=== PATIENT | male | born 1975 | race Caucasian/White ===

== ENCOUNTER 2017-09-08 17:43 | Inpatient (IN) | payer SELFPAY ==
[~2017-09-08] VITALS: Ht 200.7 cm; Wt 227.2 kg
[~2017-09-08 17:43] MED LIST: ALBU6.7H IH; FURO-68 PO; FURO-69 PO; METO25TA4 PO
--- NOTE | 2017-09-08 17:48 | ED.ADGEN ---
Past History Past Medical History: CHF, Constipation, COPD, High Cholesterol, Hypertension, Other Past Surgical History: Cholecystectomy Smoking: Greater than 1 pack/day Alcohol Use: Rarely Drug Use: None Adult General Chief Complaint Chief Complaint " .. I ve been having chest pain all day.. it is between my shoulder blades in back.. short of breath... " HPI HPI Patient is a 42 year old male who presents with above hx and complaints chest orourke and shortness of breath. Pain is rated at 6-7/10. Constant. Non- radiating. Non- compliant with Lasix and other meds. Still smokes. Hx. of clotting disorder with mother. Pt. denies trauma. Non-productive sputum with cough. Cough does seem to increase the pain. Pt. denies travel or ill contacts. Review of Systems Review of Systems Constitutional: Denies fever or chills [] Eyes: Denies change in visual acuity, redness, or eye pain [] HENT: Denies nasal congestion or sore throat [] Respiratory: complaints of shortness of breath [] Cardiovascular: No additional information not addressed in HPI [] GI: Denies abdominal pain, nausea, vomiting, bloody stools or diarrhea [] : Denies dysuria or hematuria [] Musculoskeletal: Denies back pain or joint pain [] Integument: Denies rash or skin lesions [] Neurologic: Denies headache, focal weakness or sensory changes [] Endocrine: Denies polyuria or polydipsia [] All other systems were reviewed and found to be within normal limits, except as documented in this note. Family History Family History Non-contributory Current Medications Current Medications Current Medications Medications (Trade) Dose Ordered Sig/Calixto Start Time Stop Time Status Last Admin Dose Admin Albuterol/ Ipratropium (Duoneb) 3 ml RTQID 09/08/17 21:00 09/08/17 21:33 3 ML Aspirin (Children'S Aspirin) 324 mg 1X ONCE 09/08/17 18:30 09/08/17 18:31 DC 09/08/17 18:42 324 MG Azithromycin (Zithromax) 500 mg QHS 09/08/17 21:00 09/08/17 21:34 500 MG Enoxaparin Sodium (Lovenox 100mg Syringe) 100 mg 1X ONCE 09/08/17 18:30 4/21/18 18:31 DC 09/08/17 18:30 100 MG Enoxaparin Sodium (Lovenox 150mg Syringe) 130 mg 1X ONCE 09/08/17 20:00 09/08/17 20:01 DC 09/08/17 19:46 130 MG Lactated Ringer's 1,000 ml @ 100 mls/hr Q10H 09/08/17 18:30 09/09/17 04:29 09/08/17 18:30 100 MLS/HR Morphine Sulfate (Morphine 2mg Syringe) 2 mg 1X ONCE 09/08/17 18:30 09/08/17 18:31 Cancel Morphine Sulfate (Morphine 4mg Syringe) 4 mg QIDPRN PRN 09/08/17 20:15 09/08/17 21:33 4 MG Nicotine (Nicoderm Cq 21mg) 1 patch 1X ONCE 09/08/17 21:00 09/08/17 21:01 DC 09/08/17 20:50 1 PATCH Nitroglycerin (Nitro-Bid Oint) 1 inch TID 09/08/17 21:00 Ondansetron HCl (Zofran) 4 mg PRN Q4HRS PRN 09/08/17 20:15 09/09/17 20:14 See Nursing for home meds Allergies Allergies Allergies Coded Allergies Type Severity Reaction Last Updated Verified Penicillins Allergy Intermediate 09/08/13 Yes Physical Exam Physical Exam Constitutional: Moderately acute distress, non-toxic appearance. [] HENT: Normocephalic, atraumatic, bilateral external ears normal, oropharynx moist, no oral exudates, nose normal. [] Eyes: PERRLA, EOMI, conjunctiva normal, no discharge. [] Neck: Normal range of motion, no tenderness, supple, no stridor. [] Cardiovascular:Heart rate regular rhythm, no murmur []PMI to lt. Lungs & Thorax: Bilateral breath sounds equal with scattered wheezes through out on auscultation [] Abdomen: Bowel sounds normal, soft, no tenderness, no masses, no pulsatile masses. [Obese. Skin: Warm, dry, no erythema, no rash. Veinous stasis lower legs. Back: No tenderness, no CVA tenderness. [] Extremities: No tenderness, no cyanosis, no clubbing, ROM intact, 2 + ankle edema. [] Veinous stasis. Neurologic: Alert and oriented X 3, normal motor function, normal sensory function, no focal deficits noted. [] Psychologic: Affect anxious. judgement normal, mood normal. [] Current Patient Data Vital Signs Vital Signs Date Time Temp Pulse Resp B/P (MAP) Pulse Ox O2 Delivery O2 Flow Rate FiO2 09/08/17 21:51 79 22 117/84 (95) 94 Nasal Cannula 2.0 09/08/17 17:45 98.0 Lab Results Laboratory Tests Test 09/08/17 00:02 09/08/17 17:55 09/08/17 18:42 Troponin I Quantitative 0.017 ng/mL (0-0.055) 0.019 ng/mL (0-0.055) White Blood Count 9.4 x10^3/uL (4.0-11.0) Red Blood Count 5.54 x10^6/uL (4.30-5.70) Hemoglobin 16.6 g/dL (13.0-17.5) Hematocrit 48.1 % (39.0-53.0) Mean Corpuscular Volume 87 fL (79-100) Mean Corpuscular Hemoglobin 30 pg (25-35) Mean Corpuscular Hemoglobin Concent 35 g/dL (31-37) Red Cell Distribution Width 14.4 % (11.5-14.5) Platelet Count 248 x10^3/uL (140-400) Neutrophils (%) (Auto) 65 % (31-73) Lymphocytes (%) (Auto) 24 % (24-48) Monocytes (%) (Auto) 9 % (0-9) Eosinophils (%) (Auto) 2 % (0-3) Basophils (%) (Auto) 1 % (0-3) Neutrophils # (Auto) 6.1 x10^3uL (1.8-7.7) Lymphocytes # (Auto) 2.2 x10^3/uL (1.0-4.8) Monocytes # (Auto) 0.8 x10^3/uL (0.0-1.1) Eosinophils # (Auto) 0.2 x10^3/uL (0.0-0.7) Basophils # (Auto) 0.0 x10^3/uL (0.0-0.2) Prothrombin Time 10.1 SEC (9.4-11.4) Prothrombin Time INR 1.0 (0.9-1.1) PTT 31 SEC (23-33) D-Dimer (Yaritza) 0.43 mg/L (0.00-0.50) Sodium Level 141 mmol/L (136-145) Potassium Level 3.9 mmol/L (3.5-5.1) Chloride Level 102 mmol/L (98-107) Carbon Dioxide Level 31 mmol/L (21-32) Anion Gap 8 (6-14) Blood Urea Nitrogen 14 mg/dL (8-26) Creatinine 1.0 mg/dL (0.7-1.3) Estimated GFR (Cockcroft-Gault) 81.6 Glucose Level 139 mg/dL (70-99) H Calcium Level 9.3 mg/dL (8.5-10.1) Magnesium Level 2.1 mg/dL (1.8-2.4) Total Bilirubin 0.3 mg/dL (0.2-1.0) Direct Bilirubin 0.1 mg/dL (0.0-0.2) Aspartate Amino Transferase (AST) 16 U/L (15-37) Alanine Aminotransferase (ALT) 30 U/L (16-63) Alkaline Phosphatase 68 U/L (46-116) Creatine Kinase 93 U/L (39-308) Creatine Kinase MB (Mass) 1.6 ng/mL (0.0-3.6) Creatine Kinase MB Relative Index 1.7 % (0-4) HO-Sxt-Z-Type Natriuretic Peptide 40 pg/mL (0-124) Total Protein 7.4 g/dL (6.4-8.2) Albumin 3.9 g/dL (3.4-5.0) Lipase 92 U/L (73-393) Blood pH 7.45 (7.35-7.46) Blood Gas PCO2 42 mmHg (35-46) Blood Gas PO2 57 mmHg (80-100) L Blood Gas HCO3 29 mmol/L (21-28) H Arterial Bld O2 Saturation (Calc) 90 % (92-99) L FiO2 21 % EKG EKG My interpretation of EKG shows as Sinus rate at 82, Lt. axis deviation, nonspecific fascicular block and Rt. bundle block.[] Radiology/Procedures Radiology/Procedures My interpretation of CXR shows[borderline cardiomegaly. Some cephalization, COPD pattern. Course & Med Decision Making Course & Med Decision Making Pertinent Labs and Imaging studies reviewed. (See chart for details). Discussed presentation,,testing and tx. plan with Dr. Vogel will admit for further eval. and cardiology consult. [] Final Impression Final Impression 1. Chest Pain 2. HTN- Accelerated 3. Hypoxia[] 4. COPD exacerbation/Bronchitis 5. Tobacco Abuse 6. DM 7. Morbid obesity Problems: Dragon Disclaimer Dragon Disclaimer This electronic medical record was generated, in whole or in part, using a voice recognition dictation system. ANT CURRY MD Sep 08, 2017 17:48
--- NOTE | 2017-09-08 17:56 | EKG ---
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
[2017-09-08] MEDS ORDERED: ENOXAPARIN ** NOTE DOSE ** SYRINGE SQ ONE ×3 (18:13→20:00)
[2017-09-08] MEDS ORDERED: MORPHINE SULFATE 4 MG/ML DISP.SYRIN. ONE (18:14)
[2017-09-08 18:20] LABS: BASO % 1 % (0-3); EOS # 0.2 x10^3/uL (0.0-0.7); EOS % 2 % (0-3); HEMATOCRIT 48.1 % (39.0-53.0); HEMOGLOBIN 16.6 g/dL (13.0-17.5); LYMPH # 2.2 x10^3/uL (1.0-4.8); LYMPH % 24 % (24-48); MEAN CORPUSCULAR HEMOGLOBIN 30 pg (25-35); MEAN CORPUSCULAR HGB CONC 35 g/dL (31-37); MEAN CORPUSCULAR VOLUME 87 fL (79-100); MONO # 0.8 x10^3/uL (0.0-1.1); MONO % 9 % (0-9); NEUT # 6.1 x10^3uL (1.8-7.7); NEUT % 65 % (31-73); PLATELET COUNT 248 x10^3/uL (140-400); RED BLOOD COUNT 5.54 x10^6/uL (4.30-5.70); RED CELL DISTRIBUTION WIDTH 14.4 % (11.5-14.5); WHITE BLOOD COUNT 9.4 x10^3/uL (4.0-11.0)
[2017-09-08] MEDS ORDERED: MORPHINE SULFATE 2 MG/ML DISP.SYRIN. IV ONE (18:30)
[2017-09-08] MEDS ORDERED: NITROGLYCERIN OINT 1 GM PACKET. TP ONE (18:30)
[2017-09-08] MEDS ORDERED: MORPHINE SULFATE 4 MG/ML DISP.SYRIN. IV ONE ×3 (18:30→19:45)
[2017-09-08] MEDS ORDERED: ASPIRIN 81 MG TAB.CHEW PO ONE (18:30)
[2017-09-08] MEDS ORDERED: IV RINGERS SOLUTION,LACTATED 1,000 ML IV SCH (18:30)
[2017-09-08 18:54] LABS: ALBUMIN 3.9 g/dL (3.4-5.0); CALCIUM 9.3 mg/dL (8.5-10.1); DIRECT BILIRUBIN 0.1 mg/dL (0.0-0.2); GFR 81.6; MAGNESIUM 2.1 mg/dL (1.8-2.4); POTASSIUM 3.9 mmol/L (3.5-5.1); TOTAL BILIRUBIN 0.3 mg/dL (0.2-1.0); TOTAL PROTEIN 7.4 g/dL (6.4-8.2)
[2017-09-08 19:15] LABS: BGAS PH 7.45 (7.35-7.46)
[2017-09-08] MEDS ORDERED: ONDANSETRON PF 4 MG/2 ML VIAL. IV PRN (20:15)
[2017-09-08] MEDS ORDERED: AZITHROMYCIN 250 MG TABLET. PO SCH (21:00)
[2017-09-08] MEDS ORDERED: NICOTINE 21MG PATCH. TD ONE (21:00)
[2017-09-08] MEDS: NITROGLYCERIN OINT 1 GM PACKET. TP SCH (21:00)
[2017-09-08] MEDS: MORPHINE SULFATE 4 MG/ML DISP.SYRIN. IV PRN (21:33)
[2017-09-08] MEDS: IPRATRPIUM/ALBUTEROL 0.5/2.5MG 3 ML NEBU. NEB SCH (21:33)
[2017-09-08 22:31] VITALS: BP 129/63
[2017-09-08 23:19] VITALS: BP 134/67
[2017-09-09] MEDS ORDERED: METO-239 PO (00:59)
[2017-09-09] MEDS ORDERED: ASPI-630 PO (00:59)
[2017-09-09] MEDS ORDERED: FURO80TA72 PO (00:59)
[2017-09-09] MEDS ORDERED: PNEUMOCOCCAL VAX SCREEN. MC ONE (01:00)
[2017-09-09 03:32] LABS: BILIRUBIN,URINE NEG (NEG); CLARITY,URINE CLEAR; COLOR,URINE AMBER; GLUCOSE,URINE NEG (NEG)
[2017-09-09 03:33] LABS: BACTERIA,URINE 0 /HPF (0-FEW); HYALINE CASTS, URINE OCC /HPF; NITRITE,URINE NEG (NEG); RBC,URINE RARE /HPF (0-2); SQUAMOUS EPITHELIAL CELL,UR OCC /LPF; UROBILINOGEN,URINE 0.2 mg/dL (0.2 mg/dL); WBC,URINE OCC /HPF (0-4)
[2017-09-09 03:37] LABS: AMPHETAMINE/METHAMPHETAMINE NEG (NEG); BARBITURATES NEG (NEG); BENZODIAZEPINES NEG (NEG); CANNABINOIDS NEG (NEG); COCAINE NEG (NEG); METHADONE NEG (NEG); OPIATES POS (NEG); PHENCYCLIDINE NEG (NEG)
[2017-09-09] MEDS: MORPHINE SULFATE 4 MG/ML DISP.SYRIN. IV PRN ×2 (04:45→09:57)
[2017-09-09 05:00] VITALS: BP 135/70
[2017-09-09] MEDS: IPRATRPIUM/ALBUTEROL 0.5/2.5MG 3 ML NEBU. NEB SCH ×2 (05:15→11:01)
[2017-09-09 07:17] LABS: BASO % 1 % (0-3); EOS # 0.2 x10^3/uL (0.0-0.7); EOS % 2 % (0-3); HEMATOCRIT 44.4 % (39.0-53.0); LYMPH # 1.9 x10^3/uL (1.0-4.8); LYMPH % 22 % (24-48); MEAN CORPUSCULAR HEMOGLOBIN 30 pg (25-35); MEAN CORPUSCULAR HGB CONC 34 g/dL (31-37); MEAN CORPUSCULAR VOLUME 88 fL (79-100); MONO # 0.7 x10^3/uL (0.0-1.1); MONO % 9 % (0-9); NEUT # 5.6 x10^3uL (1.8-7.7); NEUT % 67 % (31-73); PLATELET COUNT 225 x10^3/uL (140-400); RED BLOOD COUNT 5.07 x10^6/uL (4.30-5.70); RED CELL DISTRIBUTION WIDTH 14.9 % (11.5-14.5); WHITE BLOOD COUNT 8.5 x10^3/uL (4.0-11.0)
[2017-09-09 07:31] LABS: CALCIUM 8.8 mg/dL (8.5-10.1); CREATININE 1.2 mg/dL (0.7-1.3); GFR 66.1; POTASSIUM 3.9 mmol/L (3.5-5.1)
[2017-09-09] MEDS ORDERED: ASPIRIN 81 MG TAB.CHEW PO SCH (09:00)
[2017-09-09] MEDS ORDERED: ENOXAPARIN ** NOTE DOSE ** SYRINGE SQ SCH (09:00)
[2017-09-09] MEDS ORDERED: PNEUMOC CONJ VACC 23-VALENT 0.5 ML VIAL. VAX IM ONE (09:00)
[2017-09-09] MEDS ORDERED: LACTOBACILLUS RHAMNOSUS GG 1 CAPSULE. PO SCH (09:00)
[2017-09-09] MEDS: NITROGLYCERIN OINT 1 GM PACKET. TP SCH (09:18)
--- NOTE | 2017-09-09 09:45 | RAD ---
PA and lateral chest x-ray History: Chest pain shortness of breath. History of congestive heart failure. Comparison: Chest x-ray April 30, 2016. Findings: Heart size upper limits of normal. Mediastinum is unremarkable. Mild prominence of the pulmonary vasculature although this is somewhat similar to the prior study. No pneumothorax, pulmonary opacities or pleural effusions. Bones are unremarkable. Impression: No acute process evident. See discussion above.
--- NOTE | 2017-09-09 09:52 | PDOC2 ---
CONSULT Date of Admission DATE: 09/09/17 TIME: 09:51 Reason for Consult: Chest pain Referring Physician: Dr. Vogel Chief Complaint Chest pain Source: Chart review, Patient Problem List Problems Medical Problems: (1) Chest pain Status: Acute History of Present Illness 42-year-old male presented with three-day history of retrosternal chest pain associated with interscapular back pain and mild shortness of breath worse with exertion. He denied any orthopnea/PND, palpitations or syncope. Past Medical History Chronic diastolic heart failure COPD Hypertension Hyperlipidemia Morbid obesity Past Surgical History Cholecystectomy Family History Negative for premature coronary artery disease Social History Patient smokes greater than one pack of cigarettes daily and admitted to social intake of alcohol but denied any drug abuse. Current Medications Current Medications Aspirin (Children'S Aspirin) 324 mg 1X ONCE PO Last administered on 09/08/17at 18:42; Start 09/08/17 at 18:30; Stop 09/08/17 at 18:31; Status DC Morphine Sulfate (Morphine 2mg Syringe) 2 mg 1X ONCE IV ; Start 09/08/17 at 18: 30; Stop 09/08/17 at 18:31; Status Cancel Enoxaparin Sodium (Lovenox 100mg Syringe) 100 mg 1X ONCE SQ Last administered on 09/08/17at 18:30; Start 09/08/17 at 18:30; Stop 09/08/17 at 18:31; Status DC Lactated Ringer's 1,000 ml @ 100 mls/hr Q10H IV Last administered on at 18:30; Start 09/08/17 at 18:30; Stop 09/09/17 at 04:29; Status DC Nitroglycerin (Nitro-Bid Oint) 1 inch 1X ONCE TP Last administered on at 18:41; Start 09/08/17 at 18:30; Stop 09/08/17 at 18:31; Status DC Enoxaparin Sodium (Lovenox 150mg Syringe) 150 mg STK-MED ONCE SQ ; Start at 18:13; Stop 09/08/17 at 18:14; Status DC Morphine Sulfate (Morphine 4mg Syringe) 4 mg STK-MED ONCE .ROUTE ; Start at 18:14; Stop 09/08/17 at 18:15; Status DC Morphine Sulfate (Morphine 4mg Syringe) 2 mg 1X ONCE IV Last administered on at 18:41; Start 09/08/17 at 18:30; Stop 09/08/17 at 18:31; Status DC Enoxaparin Sodium (Lovenox 150mg Syringe) 130 mg 1X ONCE SQ Last administered on 09/08/17 19:46; Start 09/08/17 at 20:00; Stop 09/08/17 at 20:01; Status DC Morphine Sulfate (Morphine 4mg Syringe) 2 mg 1X ONCE IV Last administered on at 18:42; Start 09/08/17 at 19:45; Stop 09/08/17 at 19:46; Status DC Morphine Sulfate (Morphine 4mg Syringe) 4 mg 1X ONCE IV Last administered on at 19:45; Start 09/08/17 at 19:45; Stop 09/08/17 at 19:46; Status DC Ondansetron HCl (Zofran) 4 mg PRN Q4HRS PRN IV NAUSEA/VOMITING; Start 09/08/17 at 20:15; Stop 09/09/17 at 20:14 Albuterol/ Ipratropium (Duoneb) 3 ml RTQID NEB Last administered on 09/09/17 05:15; Start 09/08/17 at 21:00 Enoxaparin Sodium (Lovenox 100mg Syringe) 200 mg BID SQ Last administered on 09:08; Start 09/09/17 at 09:00 Aspirin (Children'S Aspirin) 81 mg DAILY PO Last administered on 09/09/17 09: 08; Start 09/09/17 at 09:00 Nitroglycerin (Nitro-Bid Oint) 1 inch TID TP Last administered on 09/09/17 09: 18; Start 09/08/17 at 21:00 Azithromycin (Zithromax) 500 mg QHS PO Last administered on 09/08/17 21:34; Start 09/08/17 at 21:00 Morphine Sulfate (Morphine 4mg Syringe) 4 mg QIDPRN PRN IV pain Last administered on 09/09/17 04:45; Start 09/08/17 at 20:15 Nicotine (Nicoderm Cq 21mg) 1 patch 1X ONCE TD Last administered on 4/21/18at 20:50; Start 09/08/17 at 21:00; Stop 09/08/17 at 21:01; Status DC Pneumococcal Polyvalent Vaccine (Do NOT chart on this entry -- for MONITORING) 1 each 1X ONCE MC ; Start 09/09/17 at 01:00; Stop 09/09/17 at 01:01; Status UNV Pneumococcal Polyvalent Vaccine (Pneumovax 23) 0.5 ml ONCE ONCE VAX IM Last administered on 09/09/17at 09:10; Start 09/09/17 at 09:00; Stop 09/09/17 at 09:01 ; Status DC Lactobacillus Rhamnosus (Culturelle) 1 cap BID PO Last administered on at 09:08; Start 09/09/17 at 09:00 Active Scripts Active Reported Aspirin 81 Mg Tab.chew 81 Mg PO DAILY Lasix (Furosemide) 80 Mg Tablet 80 Mg PO DAILY Metoprolol Succinate ( Xl ) (Metoprolol Succinate) 25 Mg Tab.er.24h 25 Mg PO DAILY Allergies: Coded Allergies: Penicillins (Verified Allergy, Intermediate, 09/08/13) PSYCHOLOGICAL ROS: No: Hallucinations Eyes: No: Loss of vision HEENT: No: Epistaxis Respiratory: YES: Shortness of breath, No: Hemoptysis Cardiovascular: yes: Chest Pain Gastrointestinal: No: Vomiting, Diarrhea Genitourinary: No: [place] Neurological: No: Seizures Skin: No: Rash General: Alert, No acute distress HEENT: Atraumatic, PERRLA Lungs: Other (scattered crepts bilaterally) Heart: Regular rate Abdomen: Soft, No tenderness Extremities: Other (edema with chronic changes) Psych/Mental Status: Mood NL VITALS Vital Signs Date Time Temp Pulse Resp B/P (MAP) Pulse Ox O2 Delivery O2 Flow Rate FiO2 09/09/17 09:18 70 135/70 09/09/17 05:15 20 Nasal Cannula 3.0 09/09/17 05:03 92 09/09/17 05:00 97.7 Labs Laboratory Tests Test 09/08/17 00:02 09/08/17 17:55 09/08/17 18:42 09/09/17 01:03 Troponin I Quantitative 0.017 ng/mL (0-0.055) 0.019 ng/mL (0-0.055) White Blood Count 9.4 x10^3/uL (4.0-11.0) Red Blood Count 5.54 x10^6/uL (4.30-5.70) Hemoglobin 16.6 g/dL (13.0-17.5) Hematocrit 48.1 % (39.0-53.0) Mean Corpuscular Volume 87 fL (79-100) Mean Corpuscular Hemoglobin 30 pg (25-35) Mean Corpuscular Hemoglobin Concent 35 g/dL (31-37) Red Cell Distribution Width 14.4 % (11.5-14.5) Platelet Count 248 x10^3/uL (140-400) Neutrophils (%) (Auto) 65 % (31-73) Lymphocytes (%) (Auto) 24 % (24-48) Monocytes (%) (Auto) 9 % (0-9) Eosinophils (%) (Auto) 2 % (0-3) Basophils (%) (Auto) 1 % (0-3) Neutrophils # (Auto) 6.1 x10^3uL (1.8-7.7) Lymphocytes # (Auto) 2.2 x10^3/uL (1.0-4.8) Monocytes # (Auto) 0.8 x10^3/uL (0.0-1.1) Eosinophils # (Auto) 0.2 x10^3/uL (0.0-0.7) Basophils # (Auto) 0.0 x10^3/uL (0.0-0.2) Prothrombin Time 10.1 SEC (9.4-11.4) Prothromb Time International Ratio 1.0 (0.9-1.1) Activated Partial Thromboplast Time 31 SEC (23-33) D-Dimer (Yaritza) 0.43 mg/L (0.00-0.50) Sodium Level 141 mmol/L (136-145) Potassium Level 3.9 mmol/L (3.5-5.1) Chloride Level 102 mmol/L (98-107) Carbon Dioxide Level 31 mmol/L (21-32) Anion Gap 8 (6-14) Blood Urea Nitrogen 14 mg/dL (8-26) Creatinine 1.0 mg/dL (0.7-1.3) Estimated GFR (Cockcroft-Gault) 81.6 Glucose Level 139 mg/dL (70-99) Calcium Level 9.3 mg/dL (8.5-10.1) Magnesium Level 2.1 mg/dL (1.8-2.4) Total Bilirubin 0.3 mg/dL (0.2-1.0) Direct Bilirubin 0.1 mg/dL (0.0-0.2) Aspartate Amino Transf (AST/SGOT) 16 U/L (15-37) Alanine Aminotransferase (ALT/SGPT) 30 U/L (16-63) Alkaline Phosphatase 68 U/L (46-116) Creatine Kinase 93 U/L (39-308) Creatine Kinase MB (Mass) 1.6 ng/mL (0.0-3.6) Creatine Kinase MB Relative Index 1.7 % (0-4) QP-Ghj-[id number]-Type Natriuretic Peptide 40 pg/mL (0-124) Total Protein 7.4 g/dL (6.4-8.2) Albumin 3.9 g/dL (3.4-5.0) Lipase 92 U/L (73-393) Blood Gas pH 7.45 (7.35-7.46) Blood Gas PCO2 42 mmHg (35-46) Blood Gas PO2 57 mmHg (80-100) Blood Gas HCO3 29 mmol/L (21-28) Arterial Bld O2 Saturation (Calc) 90 % (92-99) FiO2 21 % Urine Collection Type Unknown Urine Color [place] Urine Clarity Clear Urine pH 5.5 Urine Specific [place] 1.025 Urine Protein Neg (NEG-TRACE) Urine Glucose (UA) Neg mg/dL (NEG) Urine Ketones (Stick) Neg mg/dL (NEG) Urine Blood Neg (NEG) Urine Nitrite Neg (NEG) Urine Bilirubin Neg (NEG) Urine Urobilinogen Dipstick 0.2 mg/dL (0.2 mg/dL) Urine Leukocyte Esterase Neg (NEG) Urine RBC Rare /HPF (0-2) Urine WBC Occ /HPF (0-4) Urine Squamous Epithelial Cells Occ /LPF Urine Bacteria 0 /HPF (0-FEW) Urine Hyaline Casts Occ /HPF Urine Mucus Slight /LPF Urine Opiates Screen Pos (NEG) Urine Methadone Screen Neg (NEG) Urine Barbiturates Neg (NEG) Urine Phencyclidine Screen Neg (NEG) Urine Amphetamine/Methamphetamine Neg (NEG) Urine Benzodiazepines Screen Neg (NEG) Urine Cocaine Screen Neg (NEG) Urine Cannabinoids Screen Neg (NEG) Urine Ethyl Alcohol Neg (NEG) Test 09/09/17 06:42 White Blood Count 8.5 x10^3/uL (4.0-11.0) Red Blood Count 5.07 x10^6/uL (4.30-5.70) Hemoglobin 15.0 g/dL (13.0-17.5) Hematocrit 44.4 % (39.0-53.0) Mean Corpuscular Volume 88 fL (79-100) Mean Corpuscular Hemoglobin 30 pg (25-35) Mean Corpuscular Hemoglobin Concent 34 g/dL (31-37) Red Cell Distribution Width 14.9 % (11.5-14.5) Platelet Count 225 x10^3/uL (140-400) Neutrophils (%) (Auto) 67 % (31-73) Lymphocytes (%) (Auto) 22 % (24-48) Monocytes (%) (Auto) 9 % (0-9) Eosinophils (%) (Auto) 2 % (0-3) Basophils (%) (Auto) 1 % (0-3) Neutrophils # (Auto) 5.6 x10^3uL (1.8-7.7) Lymphocytes # (Auto) 1.9 x10^3/uL (1.0-4.8) Monocytes # (Auto) 0.7 x10^3/uL (0.0-1.1) Eosinophils # (Auto) 0.2 x10^3/uL (0.0-0.7) Basophils # (Auto) 0.0 x10^3/uL (0.0-0.2) Sodium Level 141 mmol/L (136-145) Potassium Level 3.9 mmol/L (3.5-5.1) Chloride Level 103 mmol/L (98-107) Carbon Dioxide Level 34 mmol/L (21-32) Anion Gap 4 (6-14) Blood Urea Nitrogen 19 mg/dL (8-26) Creatinine 1.2 mg/dL (0.7-1.3) Estimated GFR (Cockcroft-Gault) 66.1 Glucose Level 144 mg/dL (70-99) Calcium Level 8.8 mg/dL (8.5-10.1) Troponin I Quantitative < 0.017 ng/mL (0-0.055) Assessment/Plan 1. Chest pain with atypical features: Myocardial infarction has been ruled out. Plan for Lexiscan nuclear stress test as an outpatient. 2. Shortness of breath most probably acute COPD exacerbation. Chest x-ray did not show any congestive heart failure. Symptoms improved after breathing treatments. 2-D echo in 2015 showed normal LV systolic function. The importance of smoking cessation was emphasized. 3. Accelerated hypertension: Better controlled since admission 4. Chronic diastolic heart failure: Clinically well compensated. Continue Lasix orally. Thank you for your consultation Problems: JAIRO LEE MD Sep 09, 2017 09:52
[2017-09-09 10:41] VITALS: BP 106/67
--- NOTE | 2017-09-09 10:59 | RAD ---
Bilateral lower extremity venous duplex Doppler ultrasound History: Bilateral leg pain and edema and swelling. Technique: Grayscale and duplex upper sonography were utilized. Findings: No deep venous thrombosis by cuellar scale imaging with compressibility, and color Doppler blood flow and augmentation of blood flow of the common femoral veins, profunda femoral veins, superficial femoral veins and popliteal veins. Patent color Doppler blood flow without gross evidence of thrombosis of the posterior tibial veins in the calves. Patient body habitus limits visualization of segments of deep calf veins and of the distal femoral veins by cuellar scale imaging. Impression: Negative legs for deep venous thrombosis.
[2017-09-09 15:23] VITALS: BP 106/67
[2017-09-09] MEDS ORDERED: METOPROLOL SUCC 24HR ER 25 MG TAB.ER.24H. PO ONE (15:30)
[2017-09-09] MEDS ORDERED: FUROSEMIDE 80 MG TABLET PO ONE (15:30)
--- NOTE | 2017-09-09 17:19 | SSS ---
ADMIT DATE: HISTORY OF PRESENT ILLNESS: The patient is a 42-year-old male patient who came to the Emergency Room with a complaint of chest pain between his shoulder blades and the back. He has also shortness of breath. Denied any nausea or vomiting. Denied any diaphoresis. Did complain of numbness in his left hand. He rated his pain about 6-7/10, constant, nonradiating. Apparently, the patient was supposed to be on Lasix, but he is noncompliant with his medication and he stated that he has history of clotting in his family; however, denied any short cough, phlegm or hemoptysis. He was extensively investigated, and his D-dimer was only 0.43. He has no leukocytosis and he has 3 sets of cardiac enzymes, were negative. His thyroid function is normal and has had his fasting lipid profile, which showed his total cholesterol was 202 and LDL cholesterol was 133. He was seen by the pharmacy tech who recommended that the patient can be safely discharged to be followed as an outpatient for stress test. He apparently had a stress test done about 6 years ago and was negative. PAST MEDICAL HISTORY: Significant for hypertension, chronic obstructive pulmonary disease, congestive heart failure, chronic constipation, and hyperlipidemia. PAST SURGICAL HISTORY: Significant for cholecystectomy and ganglion cyst removal from the medial aspect of the right ankle joint. ALLERGIES: He has no known drug allergies. MEDICATIONS: He is on metoprolol 25 mg extended release once a day, furosemide 80 mg once a day, and aspirin 81 mg once a day. FAMILY HISTORY: He has 1 brother and 3 sisters, one of his sisters has pulmonary embolism. Mother at the age of 70 because of lymphoma and has had a history of pulmonary embolism. Father is still alive in his 60s and has hypertension and hyperlipidemia. SOCIAL HISTORY: , has 1 son and 2 daughters. He smokes about a pack a day, drinks alcohol occasionally. Does not use any drugs. 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 REVIEW OF SYSTEMS: The patient denied any blurring of vision, cataract, glaucoma or macular degeneration. Denied any earache, tinnitus or sensorineural deafness. Denied any nausea, vomiting, diarrhea or constipation. Denied any hematemesis, melena or hematochezia. Denied any dysuria, frequency or hematuria. His chest pain has largely subsided. PHYSICAL EXAMINATION: GENERAL: When I examined him, he looked well and was clearly in no apparent respiratory distress, pale, but no jaundice, cyanosis or thyromegaly. No jugular venous distention. No limb edema. VITAL SIGNS: His heart rate was 67, blood pressure was 106/67, temperature was 98, respiratory rate was 18 and oxygen saturation was 96% on room air. HEAD, EYES, EARS, NOSE AND THROAT: Showed normocephalic, atraumatic. NECK: Supple. HEART: Showed normal first and second heart sounds. No gallop, rub or murmur. CHEST: Clear to auscultation. No crepitation or rhonchi. ABDOMEN: Distended, soft, nontender. NEUROLOGIC: He is awake, alert, responding appropriately. Cranial nerves intact. EXTREMITIES: He moves extremities without difficulty. He ambulates without assistance or assistive devices. LABORATORY DATA: Showed serum sodium of 141, potassium 3.9, chloride 103, bicarbonate 34, anion gap of 4, BUN 19, creatinine 1.2, estimated GFR was 66 mL per minute, his glucose 144, calcium was 8.8, has 3 sets of cardiac enzymes that are negative. His TSH was normal at 3.325. His fasting lipid profile showed serum triglycerides 197. Total cholesterol 202, LDL was 133, VLDL was 39, HDL cholesterol was 30 and the ratio was 6. White cell count was 8500, hemoglobin 15, hematocrit 44, MCV 88 and platelet count of 225,000. ASSESSMENT AND PLAN: In summary, this is a 42-year-old male patient who came with chest pain, has 3 sets of cardiac enzymes that were negative. He was seen by the Cardiology team who recommended outpatient nuclear stress test. He has also hypertension, morbid obesity, hyperlipidemia, chronic obstructive pulmonary disease, and diastolic congestive heart failure. He is noncompliant with medication. I explained to him that most of his medication can be both from [facility] and [facility]. We will give him prescription for that and should follow with the Cardiology team as an outpatient. SHAHZAD MACEDO MD DR: KARINA/berenice JOB#: [id number] / [id number]
== END 2017-09-09 15:49 | disposition home or self-care (01) | DRG 313 ==
LOC: ER 17:43 → 1 SOUTH 22:16
PROVIDERS: ADMIT Internal Medicine; ATTEND Internal Medicine
DX: R07.89 Other chest pain (principal); I11.0 Hypertensive heart disease with heart failure; I50.32 Chronic diastolic (congestive) heart failure; E66.01 Morbid (severe) obesity due to excess calories; J44.0 Chronic obstructive pulmonary disease with (acute) lower respiratory infection; J44.1 Chronic obstructive pulmonary disease with (acute) exacerbation; Z68.43 Body mass index [BMI] 50.0-59.9, adult; E78.00 Pure hypercholesterolemia, unspecified; J20.9 Acute bronchitis, unspecified; E11.9 Type 2 diabetes mellitus without complications; R09.02 Hypoxemia; E78.5 Hyperlipidemia, unspecified; F17.210 Nicotine dependence, cigarettes, uncomplicated; Z90.49 Acquired absence of other specified parts of digestive tract; Z88.0 Allergy status to penicillin; Z80.7 Family history of other malignant neoplasms of lymphoid, hematopoietic and related tissues; Z82.49 Family history of ischemic heart disease and other diseases of the circulatory system; Z91.14 Patient's other noncompliance with medication regimen; Z84.89 Family history of other specified conditions; Z23 Encounter for immunization
CPT/HCPCS: 36415; 36600; 71046; 80048; 80061; 80076; 80307; 81001; 82553; 82803; 83036; 83690; 83735; 83880; 84443; 84484; 85025; 85379; 85610; 85730; 90732; 93005; 93970; 94640; 99406; G0238; J0456; J1650; J2270; J7120; J7620; G0479

== ENCOUNTER 2017-12-07 21:30 | Emergency (ER) | payer SELFPAY ==
[~2017-12-07] VITALS: Ht 200.7 cm; Wt 226.3 kg
[~2017-12-07 21:30] MED LIST changes: +ASPI-630 PO; +FURO80TA72 PO; +METO-239 PO
[2017-12-07 21:40] VITALS: BP 210/99
[2017-12-07] MEDS ORDERED: KETOROLAC 30 MG/ML VIAL. ONE (21:53)
[2017-12-07] MEDS ORDERED: IV NORMAL SALINE 500ML 500 ML IV ONE (22:00)
[2017-12-07] MEDS ORDERED: ONDANSETRON PF 4 MG/2 ML VIAL. IV ONE (22:00)
[2017-12-07] MEDS ORDERED: KETOROLAC 30 MG/ML VIAL. IV ONE (22:00)
--- NOTE | 2017-12-07 22:28 | PHYS DOC ---
Past History Past Medical History: CHF, Hypertension Past Surgical History: Cholecystectomy Smoking: Greater than 1 pack/day Alcohol Use: Occasionally Drug Use: None Adult General Chief Complaint Chief Complaint: NAUSEA/VOMITING/DIARRHEA HPI HPI 42-year-old male presents with right buttocks abscess. The patient states that he began to feel boil forming one week ago. 3 days ago, it began to spontaneously drain purulent fluid. The patient comes in today because he began vomiting and feeling feverish while he was at work. 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 He had an infection in the past that went septic and he had similar prodrome as today. He further admits to some mild shortness of breath. He still has 8 out of 10 pain near the abscess site. He states that the site of the wound is significantly reduced. He has not measured a fever, but has had chills. He denies chest pain, diarrhea, constipation, dysuria. Review of Systems Review of Systems Constitutional: Has had chills [] Eyes: Denies change in visual acuity, redness, or eye pain [] HENT: Denies nasal congestion or sore throat [] Respiratory: Has some shortness of breath [] Cardiovascular: No additional information not addressed in HPI [] GI: Denies abdominal pain, nausea, vomiting, bloody stools or diarrhea [] : Denies dysuria or hematuria [] Musculoskeletal: Denies back pain or joint pain [] Integument: Skin lesion of right buttocks [] Neurologic: Denies headache, focal weakness or sensory changes [] Endocrine: Denies polyuria or polydipsia [] All other systems were reviewed and found to be within normal limits, except as documented in this note. Current Medications Current Medications Current Medications Medications (Trade) Dose Ordered Sig/Calixto Start Time Stop Time Status Last Admin Dose Admin Ketorolac Tromethamine (Toradol) 30 mg STK-MED ONCE 12/07/17 21:53 12/07/17 21:54 DC Ondansetron HCl (Zofran) 4 mg 1X ONCE 12/07/17 22:00 12/07/17 22:01 DC 12/07/17 22:15 4 MG Sodium Chloride 500 ml @ 0 mls/hr 1X ONCE 12/07/17 22:00 12/07/17 22:01 DC 12/07/17 22:00 500 MLS/HR Allergies Allergies Allergies Coded Allergies Type Severity Reaction Last Updated Verified Penicillins Allergy Intermediate 09/08/13 Yes Physical Exam Physical Exam Constitutional: Well developed, morbidly obese, well nourished, no acute distress, non-toxic appearance. [] HENT: Normocephalic, atraumatic, bilateral external ears normal, oropharynx moist, no oral exudates, nose normal. [] Eyes: PERRLA, EOMI, conjunctiva normal, no discharge. [] Neck: Normal range of motion, no tenderness, supple, no stridor. [] Cardiovascular:Heart rate regular rhythm, no murmur [] Lungs & Thorax: Bilateral breath sounds clear to auscultation [] Abdomen: Bowel sounds normal, soft, no tenderness, no masses, no pulsatile masses. [] Skin: 4cm area of erythema on the right buttocks, 2mm hole in the middle with clear drainage. [] Back: No tenderness, no CVA tenderness. [] Extremities: No tenderness, no cyanosis, no clubbing, ROM intact, no edema. [] Neurologic: Alert and oriented X 3, normal motor function, normal sensory function, no focal deficits noted. [] Psychologic: Affect normal, judgement normal, mood normal. [] EKG EKG [] Radiology/Procedures Radiology/Procedures [] Impressions: My read: AP chest has no acute findings. No effusions or focal consolidations. My read: KUB shows diffuse stool throughout the colon. No air-fluid levels Course & Med Decision Making Course & Med Decision Making Pertinent Labs and Imaging studies reviewed. (See chart for details) The patient's labs are negative. His chest x-ray is unremarkable acute findings. Further discussion with the patient reveals some left upper quadrant abdominal pain. The patient also states that his bowel movements have been decreased for several days. He has had small mamadou instead of a normal bowel movement. I will order an abdominal film to evaluate for constipation. The patient's KUB does show stool throughout the colon. I do not see evidence of obstruction. Reviewed the patient 10 mg of Reglan for his continued nausea. I do not see signs of infection. I believe the patient is somewhat constipated, mildly dehydrated, and may or may not be coming down with a viral illness. I do not have indications for admission to hospital at this time. He is stable for discharge. The patient had his O2 sats drop into the 80s when he fell asleep. I have advised that he consider a sleep study for sleep apnea. He has always had high blood pressure, but I advised him that his sleep apnea could be contributing to his elevated blood pressure. [] Dragon Disclaimer Dragon Disclaimer This electronic medical record was generated, in whole or in part, using a voice recognition dictation system. Departure Departure: Referrals: PCP,NO (PCP) PITA SARAH DO Dec 07, 2017 22:28
[2017-12-07 22:32] LABS: BASO % 1 % (0-3); EOS # 0.2 x10^3/uL (0.0-0.7); EOS % 3 % (0-3); HEMATOCRIT 43.1 % (39.0-53.0); HEMOGLOBIN 14.5 g/dL (13.0-17.5); LYMPH # 2.1 x10^3/uL (1.0-4.8); LYMPH % 25 % (24-48); MEAN CORPUSCULAR HEMOGLOBIN 29 pg (25-35); MEAN CORPUSCULAR HGB CONC 34 g/dL (31-37); MEAN CORPUSCULAR VOLUME 87 fL (79-100); MONO # 0.8 x10^3/uL (0.0-1.1); MONO % 9 % (0-9); NEUT # 5.3 x10^3uL (1.8-7.7); NEUT % 63 % (31-73); PLATELET COUNT 274 x10^3/uL (140-400); RED BLOOD COUNT 4.94 x10^6/uL (4.30-5.70); RED CELL DISTRIBUTION WIDTH 13.9 % (11.5-14.5); WHITE BLOOD COUNT 8.4 x10^3/uL (4.0-11.0)
[2017-12-07 22:38] LABS: CALCIUM 9.3 mg/dL (8.5-10.1); GFR 81.6; POTASSIUM 3.6 mmol/L (3.5-5.1)
[2017-12-08] MEDS ORDERED: HYDROcodone/APAP 5/325MG 1 TAB TABLET PO ONE (00:30)
[2017-12-08] MEDS ORDERED: METOCLOPRAMIDE HCL 10 MG/2 ML VIAL. IV ONE (00:30)
--- NOTE | 2017-12-08 08:01 | RAD ---
Examination: Frontal view of the abdomen HISTORY: History of abdominal pain, constipation COMPARISON: None available FINDINGS: Cholecystectomy clips identified. The bowel gas pattern appears unremarkable. Feces and gas noted in the colon. IMPRESSION: 1. Unremarkable bowel gas pattern. Feces and gas noted in the colon. Correlate for constipation. Electronically signed by: Xiang Gerard MD (12/08/2017 7:57 AM) [facility]
--- NOTE | 2017-12-08 08:05 | RAD ---
Examination: Single frontal view of the chest HISTORY: History of shortness of breath COMPARISON: 09/08/2017. FINDINGS: The cardiomediastinal silhouette grossly appears unremarkable. There is mild prominent appearing bilateral interstitial lung markings. IMPRESSION: Mild prominent appearing bilateral interstitial lung markings likely mild congestive changes. Electronically signed by: Xiang Gerard MD (12/08/2017 8:02 AM) [facility]
== END 2017-12-08 01:28 | disposition home or self-care (01) ==
LOC: ER 21:30
DX: L02.31 Cutaneous abscess of buttock (principal); R10.12 Left upper quadrant pain; K59.00 Constipation, unspecified; R11.10 Vomiting, unspecified
CPT/HCPCS: 36415; 71045; 74018; 80048; 85025; 87070; 96361; 96374; 96375; 99285; J1885; J2405; J2765; J7040

== ENCOUNTER 2018-01-02 10:21 | Emergency (ER) | payer SELFPAY ==
[~2018-01-02] VITALS: Ht 200.7 cm; Wt 226.3 kg
[2018-01-02 11:10] LABS: BASO # 0.1 x10^3/uL (0.0-0.2); BASO % 1 % (0-3); EOS # 0.2 x10^3/uL (0.0-0.7); EOS % 3 % (0-3); HEMOGLOBIN 15.3 g/dL (13.0-17.5); LYMPH # 1.7 x10^3/uL (1.0-4.8); LYMPH % 23 % (24-48); MEAN CORPUSCULAR HEMOGLOBIN 30 pg (25-35); MEAN CORPUSCULAR HGB CONC 34 g/dL (31-37); MEAN CORPUSCULAR VOLUME 86 fL (79-100); MONO # 0.5 x10^3/uL (0.0-1.1); MONO % 7 % (0-9); NEUT # 4.9 x10^3uL (1.8-7.7); NEUT % 66 % (31-73); PLATELET COUNT 225 x10^3/uL (140-400); RED CELL DISTRIBUTION WIDTH 14.2 % (11.5-14.5); WHITE BLOOD COUNT 7.4 x10^3/uL (4.0-11.0)
--- NOTE | 2018-01-02 11:10 | ED.ADGEN ---
Past History Past Medical History: CHF, Hypertension, Other Past Surgical History: Cholecystectomy, Other Smoking: Greater than 1 pack/day Alcohol Use: Occasionally Drug Use: None Adult General Chief Complaint Chief Complaint Shortness of breath HPI HPI Patient is a 39-year-old male with history of hypertension and congestive heart failure presents with elevated blood pressure. Then 200/100, and shortness of breath which is been progressive since this morning. Patient also reports posterior head neck pain, bilateral leg pain and swelling. Patient was hospitalized at this facility less than 2 months ago for the same. Extensive cardiac testing at that time and started on blood pressure medication along with diuretic. States he is compliant with his therapy and last took 40 mg of Lasix prior to ED arrival. Patient is the process of quitting smoking. Denies fever chills, chest pain, increased productive cough. No unilateral swelling or history of DVTs. Although patient does report significant family history of clotting disorders. No other acute symptoms or complaints. Patient does not currently have a PCP.[] Review of Systems Review of Systems ROS as per HPI All other systems were reviewed and found to be within normal limits, except as documented in this note. Current Medications Current Medications Current Medications Medications (Trade) Dose Ordered Sig/Calixto Start Time Stop Time Status Last Admin Dose Admin Fentanyl Citrate (Fentanyl 2ml Vial) 100 mcg 1X ONCE 01/02/18 13:15 01/02/18 13:16 DC 01/02/18 13:03 100 MCG Labetalol HCl (Normodyne) 20 mg 1X ONCE 01/02/18 11:15 01/02/18 11:16 DC 01/02/18 11:25 20 MG Ondansetron HCl (Zofran) 4 mg 1X ONCE 01/02/18 13:15 01/02/18 13:16 DC 01/02/18 13:01 4 MG Allergies Allergies Allergies Coded Allergies Type Severity Reaction Last Updated Verified Penicillins Allergy Intermediate 01/02/18 Yes Physical Exam Physical Exam Constitutional: Well developed, well nourished, no acute distress.[] HENT: Normocephalic, atraumatic, bilateral external ears normal, oropharynx moist, no oral exudates, nose normal. [] Eyes: PERRLA, EOMI, conjunctiva normal, no discharge. [] Neck: Normal range of motion, no tenderness, supple, no stridor. [] Cardiovascular:Heart rate regular rhythm, no murmur, bipedal edema [] Lungs & Thorax: Bilateral breath sounds clear to auscultation, chest wall girth compromising exam, [] Abdomen: Bowel sounds normal, soft, no tenderness, abdominal girth compromising exam. [] Skin: Warm, dry, no erythema, no rash. [] Back: No tenderness, no CVA tenderness. [] Extremities: No tenderness, no cyanosis, no clubbing, ROM intact, no edema. [] Neurologic: Alert and oriented X 3, normal motor function, normal sensory function, no focal deficits noted. [] Psychologic: Affect normal, judgement normal, mood normal. [] Current Patient Data Vital Signs Vital Signs Date Time Temp Pulse Resp B/P (MAP) Pulse Ox O2 Delivery O2 Flow Rate FiO2 01/02/18 13:03 18 93 Room Air 01/02/18 11:25 63 174/101 01/02/18 10:21 98.6 Lab Results Laboratory Tests Test 01/02/18 10:50 01/02/18 12:53 White Blood Count 7.4 x10^3/uL (4.0-11.0) Red Blood Count 5.20 x10^6/uL (4.30-5.70) Hemoglobin 15.3 g/dL (13.0-17.5) Hematocrit 45.0 % (39.0-53.0) Mean Corpuscular Volume 86 fL (79-100) Mean Corpuscular Hemoglobin 30 pg (25-35) Mean Corpuscular Hemoglobin Concent 34 g/dL (31-37) Red Cell Distribution Width 14.2 % (11.5-14.5) Platelet Count 225 x10^3/uL (140-400) Neutrophils (%) (Auto) 66 % (31-73) Lymphocytes (%) (Auto) 23 % (24-48) L Monocytes (%) (Auto) 7 % (0-9) Eosinophils (%) (Auto) 3 % (0-3) Basophils (%) (Auto) 1 % (0-3) Neutrophils # (Auto) 4.9 x10^3uL (1.8-7.7) Lymphocytes # (Auto) 1.7 x10^3/uL (1.0-4.8) Monocytes # (Auto) 0.5 x10^3/uL (0.0-1.1) Eosinophils # (Auto) 0.2 x10^3/uL (0.0-0.7) Basophils # (Auto) 0.1 x10^3/uL (0.0-0.2) Sodium Level 139 mmol/L (136-145) Potassium Level 4.2 mmol/L (3.5-5.1) Chloride Level 103 mmol/L (98-107) Carbon Dioxide Level 28 mmol/L (21-32) Anion Gap 8 (6-14) Blood Urea Nitrogen 8 mg/dL (8-26) Creatinine 0.8 mg/dL (0.7-1.3) Estimated GFR (Cockcroft-Gault) 105.5 BUN/Creatinine Ratio 10 (6-20) Glucose Level 147 mg/dL (70-99) H Calcium Level 8.9 mg/dL (8.5-10.1) Total Bilirubin 0.4 mg/dL (0.2-1.0) Aspartate Amino Transferase (AST) 14 U/L (15-37) L Alanine Aminotransferase (ALT) 26 U/L (16-63) Alkaline Phosphatase 59 U/L (46-116) Creatine Kinase 64 U/L (39-308) Troponin I Quantitative < 0.017 ng/mL (0-0.055) KB-Knt-U-Type Natriuretic Peptide 100 pg/mL (0-124) Total Protein 7.4 g/dL (6.4-8.2) Albumin 3.5 g/dL (3.4-5.0) Albumin/Globulin Ratio 0.9 (1.0-1.7) L Urine Opiates Screen Neg (NEG) Urine Methadone Screen Neg (NEG) Urine Barbiturates Neg (NEG) Urine Phencyclidine Screen Neg (NEG) Urine Amphetamine/Methamphetamine Neg (NEG) Urine Benzodiazepines Screen Neg (NEG) Urine Cocaine Screen Neg (NEG) Urine Cannabinoids Screen Neg (NEG) Urine Ethyl Alcohol Neg (NEG) EKG EKG [EKG: Sinus rhythm, rate 73, left axis deviation, left anterior fascicular block with incomplete right bundle-branch block, no acute ST-T wave changes, QTC 422.] Radiology/Procedures Radiology/Procedures [Chest x-ray: No acute disease on limited study] Course & Med Decision Making Course & Med Decision Making Pertinent Labs and Imaging studies reviewed. (See chart for details) [Lab, imaging reviewed and nondiagnostic. Blood pressure significant improved with clonidine and labetalol. Patient states he frequently has headaches with elevated blood pressure. Symptoms improved with treatment. Will increase Toprol to 50 mg twice a day, continue Lasix with close PCP follow-up and home blood pressure returning. Return precautions reviewed. Patient verbalizes understanding agreement discharge instructions prior to departure. Final Impression Final Impression 1. Accelerated HTN 2. Headache[] Dragon Disclaimer Dragon Disclaimer This electronic medical record was generated, in whole or in part, using a voice recognition dictation system. PITA TERAN DO Jan 02, 2018 11:10
[2018-01-02 11:15] LABS: ALBUMIN 3.5 g/dL (3.4-5.0); ALBUMIN/GLOBULIN RATIO 0.9 (1.0-1.7); CALCIUM 8.9 mg/dL (8.5-10.1); CREATININE 0.8 mg/dL (0.7-1.3); GFR 105.5; POTASSIUM 4.2 mmol/L (3.5-5.1); TOTAL BILIRUBIN 0.4 mg/dL (0.2-1.0); TOTAL PROTEIN 7.4 g/dL (6.4-8.2)
[2018-01-02] MEDS ORDERED: LABETALOL 100 MG/20 ML VIAL. IV ONE (11:15)
--- NOTE | 2018-01-02 11:25 | RAD ---
EXAM: AP view of the chest DATE: 01/02/2018 10:14 AM INDICATION: chest pain COMPARISON: No Prior FINDINGS: Exam is mildly limited given suboptimal radiographic penetration. Within these constraints: The heart is borderline enlarged. No definite parenchymal airspace opacity. No pleural effusion or pneumothorax. IMPRESSION: On this somewhat limited exam, no evidence for acute cardiopulmonary process. Electronically signed by: Chad Aquino MD (01/02/2018 11:21 AM) [facility]
--- NOTE | 2018-01-02 11:44 | EKG ---
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
--- NOTE | 2018-01-02 12:54 | RAD ---
Examination: Bilateral Lower Extremity Venous Doppler Ultrasound History: Bilateral leg pain Comparison: 09/09/2017 Procedure: Guardado scale, color flow 2D and spectal waveform analysis images are obtained with and without compression in the area of the common femoral vein, superficial femoral vein - femoral vein junction, main femoral vein (superficial femoral vein) and popliteal vein. Veins of the proximal calf are also imaged. Findings: Examination due to patient body habitus. There is normal duplex flow, color flow and compressibility of all visualized vein segments. No evidence of deep venous thrombus is present. Impression: No evidence of DVT in the visualized bilateral lower extremity venous system. Limited examination due to patient body habitus. Electronically signed by: Xiang Gerard MD (01/02/2018 12:50 PM) [id number]
[2018-01-02 13:14] LABS: BARBITURATES NEG (NEG); BENZODIAZEPINES NEG (NEG); CANNABINOIDS NEG (NEG); COCAINE NEG (NEG); METHADONE NEG (NEG); OPIATES NEG (NEG); PHENCYCLIDINE NEG (NEG)
[2018-01-02 13:15] LABS: AMPHETAMINE/METHAMPHETAMINE NEG (NEG)
[2018-01-02] MEDS ORDERED: ONDANSETRON PF 4 MG/2 ML VIAL. IV ONE (13:15)
[2018-01-02 14:11] VITALS: BP 162/87
== END 2018-01-02 14:11 | disposition home or self-care (01) ==
LOC: ER 10:21
DX: I11.0 Hypertensive heart disease with heart failure (principal); M54.2 Cervicalgia; M79.605 Pain in left leg; M79.604 Pain in right leg; I50.9 Heart failure, unspecified; F17.200 Nicotine dependence, unspecified, uncomplicated; Z88.0 Allergy status to penicillin
CPT/HCPCS: 36415; 71045; 80053; 80307; 82550; 83880; 84484; 85025; 93005; 93970; 96374; 96375; 99285; J2405; J3010; J3490; G0479

== ENCOUNTER 2018-03-08 23:01 | Emergency (ER) | payer SELFPAY ==
[~2018-03-08] VITALS: Ht 200.7 cm; Wt 204.1 kg
[2018-03-08 23:18] VITALS: BP 153/87
[2018-03-08] MEDS ORDERED: ACETAMINOPHEN 500 MG TABLET PO ONE (23:30)
[2018-03-09] LABS: BASO # 0.1 x10^3/uL (0.0-0.2); BASO % 1 % (0-3); EOS # 0.2 x10^3/uL (0.0-0.7); EOS % 3 % (0-3); HEMATOCRIT 43.4 % (39.0-53.0); HEMOGLOBIN 15.2 g/dL (13.0-17.5); LYMPH # 2.4 x10^3/uL (1.0-4.8); LYMPH % 27 % (24-48); MEAN CORPUSCULAR HEMOGLOBIN 30 pg (25-35); MEAN CORPUSCULAR HGB CONC 35 g/dL (31-37); MEAN CORPUSCULAR VOLUME 86 fL (79-100); MONO # 0.8 x10^3/uL (0.0-1.1); MONO % 8 % (0-9); NEUT # 5.5 x10^3uL (1.8-7.7); NEUT % 61 % (31-73); PLATELET COUNT 237 x10^3/uL (140-400); RED BLOOD COUNT 5.02 x10^6/uL (4.30-5.70); RED CELL DISTRIBUTION WIDTH 13.9 % (11.5-14.5)
[2018-03-09] MEDS ORDERED: OXYC-328 PO (00:06)
[2018-03-09] MEDS ORDERED: CYCL-331 PO (00:06)
[2018-03-09 00:10] LABS: ALBUMIN 3.6 g/dL (3.4-5.0); CALCIUM 8.9 mg/dL (8.5-10.1); GFR 81.6; MAGNESIUM 2.2 mg/dL (1.8-2.4); POTASSIUM 3.7 mmol/L (3.5-5.1); TOTAL BILIRUBIN 0.3 mg/dL (0.2-1.0); TOTAL PROTEIN 7.3 g/dL (6.4-8.2)
[2018-03-09] MEDS ORDERED: predniSONE 20 MG TABLET ONE (00:12)
[2018-03-09] MEDS ORDERED: oxyCODONE IR 5 MG TABLET PO ONE (00:15)
[2018-03-09] MEDS ORDERED: predniSONE 20 MG TABLET PO ONE (00:15)
[2018-03-09] MEDS ORDERED: CYCLOBENZAPRINE 10 MG TABLET. PO ONE (00:15)
--- NOTE | 2018-03-09 05:19 | ED.ADGEN ---
Past History Past Medical History: CHF, Hypertension, Other Past Surgical History: Cholecystectomy, Other Smoking: Greater than 1 pack/day Alcohol Use: Occasionally Drug Use: None Adult General Chief Complaint Chief Complaint Back pain radiating to left foot HPI HPI Patient is a 42-year-old male presents with acute low back pain radiating to left posterior leg with paresthesias of left foot. Onset was 4-5 days ago. Back pain is worse with standing movement. Denies trauma or repetitive strain injury. However, patient is 5 with a 450 pounds and does report chronic intermittent back pain. Denies lower extremity motor weakness. Denies falls or injury. He is taken [id number] medications with limited relief.. Patient currently does not have a primary care physician due to lack of financial resources.[] Review of Systems Review of Systems Review symptoms as per history of present illness. All other systems were reviewed and found to be within normal limits, except as documented in this note. Current Medications Current Medications Current Medications Medications (Trade) Dose Ordered Sig/Calixto Start Time Stop Time Status Last Admin Dose Admin Acetaminophen (Tylenol) 1,000 mg 1X ONCE 03/08/18 23:30 03/08/18 23:31 DC Cyclobenzaprine HCl (Flexeril) 10 mg 1X ONCE 03/09/18 00:15 03/09/18 00:16 DC 03/09/18 00:15 10 MG Oxycodone HCl (Roxicodone) 20 mg 1X ONCE 03/09/18 00:15 03/09/18 00:16 DC 03/09/18 00:16 20 MG Prednisone (Prednisone) 20 mg STK-MED ONCE 03/09/18 00:12 03/09/18 00:21 DC Allergies Allergies Allergies Coded Allergies Type Severity Reaction Last Updated Verified Penicillins Allergy Intermediate 03/09/18 Yes Physical Exam Physical Exam Constitutional: Well developed, well nourished, moderate discomfort secondary pain. [] HENT: Normocephalic, atraumatic, bilateral external ears normal, oropharynx moist, no oral exudates, nose normal. [] Eyes: PERRLA, EOMI, conjunctiva normal, no discharge. [] Neck: Normal range of motion, no tenderness, supple, no stridor. [] Cardiovascular:Heart rate regular rhythm, no murmur [] Lungs & Thorax: Bilateral breath sounds clear to auscultation [] Abdomen: Bowel sounds normal, soft, no tenderness, no masses, no pulsatile masses. [] Skin: Warm, dry, no erythema, no rash. [] Back: No midline or paravertebral tenderness. [] Extremities: Lower extremity, good pulses distally, no rash, swelling, negative Homans signs[] Neurologic: Alert and oriented X 3, normal motor function, normal sensory function, no focal deficits noted. [] Psychologic: Affect normal, judgement normal, mood normal. [] Current Patient Data Vital Signs Vital Signs Date Time Temp Pulse Resp B/P (MAP) Pulse Ox O2 Delivery O2 Flow Rate FiO2 03/09/18 00:16 18 95 Room Air 03/08/18 23:18 98.1 82 Lab Results Laboratory Tests Test 03/08/18 23:40 White Blood Count 9.0 x10^3/uL (4.0-11.0) Red Blood Count 5.02 x10^6/uL (4.30-5.70) Hemoglobin 15.2 g/dL (13.0-17.5) Hematocrit 43.4 % (39.0-53.0) Mean Corpuscular Volume 86 fL (79-100) Mean Corpuscular Hemoglobin 30 pg (25-35) Mean Corpuscular Hemoglobin Concent 35 g/dL (31-37) Red Cell Distribution Width 13.9 % (11.5-14.5) Platelet Count 237 x10^3/uL (140-400) Neutrophils (%) (Auto) 61 % (31-73) Lymphocytes (%) (Auto) 27 % (24-48) Monocytes (%) (Auto) 8 % (0-9) Eosinophils (%) (Auto) 3 % (0-3) Basophils (%) (Auto) 1 % (0-3) Neutrophils # (Auto) 5.5 x10^3uL (1.8-7.7) Lymphocytes # (Auto) 2.4 x10^3/uL (1.0-4.8) Monocytes # (Auto) 0.8 x10^3/uL (0.0-1.1) Eosinophils # (Auto) 0.2 x10^3/uL (0.0-0.7) Basophils # (Auto) 0.1 x10^3/uL (0.0-0.2) Sodium Level 139 mmol/L (136-145) Potassium Level 3.7 mmol/L (3.5-5.1) Chloride Level 102 mmol/L (98-107) Carbon Dioxide Level 29 mmol/L (21-32) Anion Gap 8 (6-14) Blood Urea Nitrogen 16 mg/dL (8-26) Creatinine 1.0 mg/dL (0.7-1.3) Estimated GFR (Cockcroft-Gault) 81.6 BUN/Creatinine Ratio 16 (6-20) Glucose Level 159 mg/dL (70-99) H Uric Acid 7.4 mg/dL (3.5-7.2) H Calcium Level 8.9 mg/dL (8.5-10.1) Magnesium Level 2.2 mg/dL (1.8-2.4) Total Bilirubin 0.3 mg/dL (0.2-1.0) Aspartate Amino Transferase (AST) 15 U/L (15-37) Alanine Aminotransferase (ALT) 29 U/L (16-63) Alkaline Phosphatase 58 U/L (46-116) Total Protein 7.3 g/dL (6.4-8.2) Albumin 3.6 g/dL (3.4-5.0) Albumin/Globulin Ratio 1.0 (1.0-1.7) EKG EKG [] Radiology/Procedures Radiology/Procedures [] Course & Med Decision Making Course & Med Decision Making Pertinent Labs and Imaging studies reviewed. (See chart for details) [Basic labs reviewed. Patient's symptoms most consistent with lumbar radiculopathy] Final Impression Final Impression [1. Acute lumbar radiculopathy] Valarie Disclaimer Dragon Disclaimer This electronic medical record was generated, in whole or in part, using a voice recognition dictation system. PITA TREAN DO Mar 09, 2018 05:19
--- NOTE | 2018-03-09 09:57 | RAD ---
FOOT LEFT 3V (AP, oblique, lateral) INDICATION: lt foot pain COMPARISON: None. FINDINGS: No acute fracture or malalignment. Remote fifth proximal phalangeal fracture. Calcaneal enthesophyte. Mild ankle arthrosis. Bony mineralization is normal for the patient's age. No significant soft tissue abnormality. No radiopaque foreign body. IMPRESSION: No acute fracture or malalignment. Electronically signed by: Joel Conway MD (03/09/2018 9:54 AM) [facility]
== END 2018-03-09 00:20 | disposition home or self-care (01) ==
LOC: ER 23:01
DX: M54.16 Radiculopathy, lumbar region (principal); M79.672 Pain in left foot; F17.200 Nicotine dependence, unspecified, uncomplicated; I11.0 Hypertensive heart disease with heart failure; I50.9 Heart failure, unspecified; Z88.0 Allergy status to penicillin
CPT/HCPCS: 36415; 73630; 80053; 83735; 84550; 85025; 99285; J7512

== ENCOUNTER 2019-09-12 22:30 | Inpatient (IN) | payer SELFPAY ==
[~2019-09-12] VITALS: Ht 200.7 cm; Wt 239.7 kg
[~2019-09-12 22:30] MED LIST changes: +ALBU2.5V8 IH; -ALBU6.7H IH; +CYCL-331 PO; +OXYC1TAB22 PO
--- NOTE | 2019-09-12 22:41 | PHYS DOC ---
Past History Past Medical History: CHF, Hypertension, Other Past Surgical History: Cholecystectomy, Other Smoking: Greater than 1 pack/day Alcohol Use: Occasionally Drug Use: None General Adult EDM: Chief Complaint: CHEST PAIN HPI: HPI: ".... I having some chest pain.. short of breath.. I ve had CHF...I feel.. like having heart attack.. ". I need some lasix now.. I know my body.." Patient is a 44 year old male who presents with above hx and complaints of central chest pain and generalized shortness of breath. Patient states pain started tonight but got considerably worse which caused him to stop the hospital. The patient has a past history of angina, COPD, accelerated hypertension, CHF, morbid obesity and diabetes. Patient does continue to smoke. Patient states he does not follow-up with any doctors. In the past he was evaluated by a phonograph needle tip maker at [place] for chest pain. 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 Patient denies any history of immune suppression. Patient denies any history of recent ill contacts. Review of Systems: Review of Systems: Constitutional: Denies fever or chills Eyes: Denies change in visual acuity HENT: Denies nasal congestion or sore throat Respiratory: Complains of shortness of breath Cardiovascular: Complains of chest pain and edema GI: Denies abdominal pain, nausea, vomiting, bloody stools or diarrhea : Denies dysuria Musculoskeletal: Denies back pain or joint pain Integument: Denies rash Neurologic: Denies headache, focal weakness or sensory changes Endocrine: Denies polyuria or polydipsia Lymphatic: Denies swollen glands Psychiatric: Denies depression or anxiety Heart Score: HEART Score for Chest Pain: HEART Score for Chest Pain Response (Comments) Value History Highly Suspicious 2 ECG Nonspecific Repolarizatio 1 Age >45 - < 65 1 Risk Factors >3 Risk Factors or Hx CAD 2 Troponin < Normal Limit 0 Total 6 Risk Factors: Risk Factors: DM, Current or recent (<one month) smoker, HTN, HLP, family history of CAD, obesity. Risk Scores: Score 0 - 3: 2.5% MACE over next 6 weeks - Discharge Home Score 4 - 6: 20.3% MACE over next 6 weeks - Admit for Clinical Observation Score 7 - 10: 72.7% MACE over next 6 weeks - Early Invasive Strategies Family History: Family History: Noncontributory to presentation Current Medications: Current Meds: See nursing for home meds Allergies: Allergies: Allergies Coded Allergies Type Severity Reaction Last Updated Verified Penicillins Allergy Intermediate 03/09/18 Yes Physical Exam: PE: Constitutional: in acute distress, non-toxic appearance. [] HENT: Normocephalic, atraumatic, bilateral external ears normal, oropharynx moist, no oral exudates, nose normal. [] Eyes: PERRLA, EOMI, conjunctiva normal, no discharge. [] Neck: Normal range of motion, no tenderness, supple, no stridor. [] Cardiovascular:Heart rate regular rhythm, no murmur, PMI to the left Lungs & Thorax: Bilateral breath sounds equal at apex with scattered wheezes on auscultation [] Abdomen: Bowel sounds normal, soft, no tenderness, no masses, no pulsatile masses. [Morbidly obese. Old surgical scars. Skin: Warm, dry, no erythema, no rash. [] Back: No tenderness, no CVA tenderness. [] Extremities: No tenderness, no cyanosis, no clubbing, ROM intact, lower leg edema and chronic venous stasis changes t Neurologic: Alert and oriented X 3, moves extremities on request, has distal sensory, no focal deficits noted. [] Psychologic: Affect anxious, judgement normal, mood normal. [] EKG: EKG: My interpretation EKG shows a sinus rhythm at 81 bpm. Does have left axis deviation and a fascicular block. No findings of acute STEMI of contralateral changes but does appear to be an abnormal EKG. [] Radiology/Procedures: Radiology/Procedures: [] IMAGING REPORT Signed PATIENT: MACARENA JOHNSON SACCOUNT: [id number] : 1975 LOCATION: ER AGE: 44 SEX: M EXAM STATUS: REG ER ORD. PHYSICIAN: ANT CURRY MD REASON: CHEST PAIN, SHORTNESS OF AIR PROCEDURE: CHEST PA & LATERAL PA and lateral chest x-ray HISTORY: Chest pain shortness of breath. COMPARISON: Chest x-ray January 02, 2018. FINDINGS: Borderline cardiomegaly is stable. Mild prominence of the pulmonary vasculature without discrete vascular congestion evident, stable. Mediastinal silhouette is normal. No pneumothorax, pulmonary opacities or pleural effusions. Bones are unremarkable. IMPRESSION: No acute process. Stable exam. Electronically signed by: Laurence Murcia MD (09/13/2019 12:00 AM) [id number] DICTATED AND SIGNED BY: LAURENCE MURCIA MD DATE: 09/13/19 0000 CC: ANT CURRY MD; PCP,NO ~ Course & Med Decision Making: Course & Med Decision Making Pertinent Labs and Imaging studies reviewed. (See chart for details) Patient admitted to Dr. Vogel with a l cardiology consult. Impression: 1. Chest Pain 2. Dyspnea 3. Accelerated HTN 4. Tobacco Use, 5. DM 126 6. Morbid Obesity [] Dragon Disclaimer: Valarie Disclaimer: This electronic medical record was generated, in whole or in part, using a voice recognition dictation system. Departure Departure: Disposition: 01 HOME/RESIDENCE PRIOR TO ADM Condition: STABLE Referrals: PCP,NO (PCP) Valarie Disclaimer This chart was dictated in whole or in part using Voice Recognition software in a busy, high-work load, and often noisy Emergency Department environment. It may contain unintended and wholly unrecognized errors or omissions. ANT CURRY MD Sep 12, 2019 22:41
[2019-09-12] MEDS ORDERED: ENOXAPARIN ** NOTE DOSE ** SYRINGE SQ ONE (22:45)
[2019-09-12] MEDS ORDERED: ASPIRIN CHEWABLE 81 MG TABLET. PO ONE (22:45)
[2019-09-12] MEDS ORDERED: NITROGLYCERIN OINT 1 GM PACKET. TP ONE (22:45)
[2019-09-12 23:22] LABS: ALBUMIN 3.8 g/dL (3.4-5.0); CALCIUM 9.2 mg/dL (8.5-10.1); CREATININE 0.9 mg/dL (0.7-1.3); DIRECT BILIRUBIN 0.1 mg/dL (0.0-0.2); GFR 91.3; MAGNESIUM 2.1 mg/dL (1.8-2.4); TOTAL BILIRUBIN 0.3 mg/dL (0.2-1.0); TOTAL PROTEIN 7.6 g/dL (6.4-8.2)
--- NOTE | 2019-09-13 00:03 | RAD ---
PA and lateral chest x-ray HISTORY: Chest pain shortness of breath. COMPARISON: Chest x-ray January 02, 2018. FINDINGS: Borderline cardiomegaly is stable. Mild prominence of the pulmonary vasculature without discrete vascular congestion evident, stable. Mediastinal silhouette is normal. No pneumothorax, pulmonary opacities or pleural effusions. Bones are unremarkable. IMPRESSION: No acute process. Stable exam. Electronically signed by: [place] Murcia MD (09/13/2019 12:00 AM) [id number]
--- NOTE | 2019-09-13 00:11 | EKG ---
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
[2019-09-13] MEDS ORDERED: MORPHINE SULFATE 10 MG/ML SYRINGE. SQ ONE (00:30)
[2019-09-13] MEDS ORDERED: ACETAMINOPHEN 325 MG TABLET PO PRN (00:45)
[2019-09-13] MEDS ORDERED: MORPHINE SULFATE 2 MG/ML DISP.SYRIN. IVP PRN (00:45)
[2019-09-13] MEDS ORDERED: ONDANSETRON PF 4 MG/2 ML VIAL. IVP PRN (00:45)
[2019-09-13 00:49] LABS: BASO % 0 % (0-3); EOS # 0.2 x10^3/uL (0.0-0.7); EOS % 3 % (0-3); HEMOGLOBIN 15.8 g/dL (13.0-17.5); LYMPH % 22 % (24-48); MEAN CORPUSCULAR HEMOGLOBIN 30 pg (25-35); MEAN CORPUSCULAR HGB CONC 34 g/dL (31-37); MEAN CORPUSCULAR VOLUME 88 fL (79-100); MONO # 0.6 x10^3/uL (0.0-1.1); MONO % 7 % (0-9); NEUT # 6.1 x10^3uL (1.8-7.7); NEUT % 68 % (31-73); PLATELET COUNT 246 x10^3/uL (140-400); RED BLOOD COUNT 5.33 x10^6/uL (4.30-5.70); RED CELL DISTRIBUTION WIDTH 14.4 % (11.5-14.5); WHITE BLOOD COUNT 9.1 x10^3/uL (4.0-11.0)
[2019-09-13] MEDS ORDERED: IV NORMAL SALINE 1,000ML 1,000 ML IV ONE (01:00)
[2019-09-13] MEDS ORDERED: ANTI-COAG MONITOR BY PHARMACY. MC PRN (01:00)
[2019-09-13] MEDS ORDERED: MAGNESIUM HYDROXIDE 2,400 MG/30 ML ORAL.SUSP. PO ONE ×2 (01:45)
[2019-09-13] MEDS ORDERED: MORPHINE SULFATE 4 MG/ML DISP.SYRIN. IV ONE (01:45)
[2019-09-13] MEDS ORDERED: FAMOTIDINE 20 MG/2 ML VIAL IVP ONE ×2 (01:45)
--- NOTE | 2019-09-13 02:02 | NUR ---
The patient, MACARENA JOHNSON, 44 y/o, M admitted by SHAHZAD MACEDO MD, was given written information regarding hospital policies, unit procedures and contact persons. Valuables were checked and logged. Call light in reach. Will continue to monitor.
[2019-09-13] MEDS ORDERED: POTA20TA4 PO (02:30)
[2019-09-13 02:35] VITALS: BP 143/86
--- NOTE | 2019-09-13 03:00 | NUR ---
This nurse talked to Curly the pharmacist at [facility]. Pt's weight is 528 pounds per the standing scale which exceeds the weight limit in our weight and height intervention. Curly is going to change the lovenox dose, and leave a note for [facility] pharmacist. This nurse did not put the weight into the intervention d/t it will not take it.
--- NOTE | 2019-09-13 04:17 | NUR ---
Routine [facility] cardio consult called at this time.
[2019-09-13] MEDS ORDERED: IPRATRPIUM/ALBUTEROL 0.5/2.5MG 3 ML NEBU. ONE (05:05)
[2019-09-13] MEDS: IPRATRPIUM/ALBUTEROL 0.5/2.5MG 3 ML NEBU. NEB SCH ×3 (05:12→16:00)
[2019-09-13 05:17] VITALS: BP 151/74
[2019-09-13 06:13] LABS: BARBITURATES NEG (NEG); BENZODIAZEPINES NEG (NEG); CANNABINOIDS NEG (NEG); COCAINE NEG (NEG); METHADONE NEG (NEG); OPIATES POS (NEG); PHENCYCLIDINE NEG (NEG)
[2019-09-13 06:23] LABS: AMPHETAMINE/METHAMPHETAMINE NEG (NEG)
[2019-09-13 07:47] LABS: BILIRUBIN,URINE NEG (NEG); CLARITY,URINE CLEAR; COLOR,URINE AMBER; GLUCOSE,URINE NEG (NEG); NITRITE,URINE NEG (NEG)
[2019-09-13 07:48] LABS: BACTERIA,URINE 0 /HPF (0-FEW); HYALINE CASTS, URINE MOD /HPF; SQUAMOUS EPITHELIAL CELL,UR FEW /LPF
[2019-09-13] MEDS ORDERED: ASPIRIN CHEWABLE 81 MG TABLET. PO SCH ×2 (08:00→09:00)
[2019-09-13] MEDS ORDERED: FUROSEMIDE 80 MG TABLET PO SCH (09:00)
[2019-09-13] MEDS: NITROGLYCERIN OINT 1 GM PACKET. TP SCH ×2 (09:00→11:20)
[2019-09-13] MEDS ORDERED: METOPROLOL SUCC 24HR ER 25 MG TAB.ER.24H. PO SCH (09:00)
[2019-09-13] MEDS: ENOXAPARIN ** NOTE DOSE ** SYRINGE SQ SCH (09:00)
[2019-09-13] MEDS ORDERED: POTASSIUM CHLORIDE 20 MEQ TABLET.ER. PO SCH (09:00)
[2019-09-13] MEDS: HYDROcodone/APAP 5/325MG 1 TAB TABLET PO PRN ×2 (09:04→14:41)
--- NOTE | 2019-09-13 10:04 | RAD ---
INDICATION: Bilateral leg pain COMPARISON: December 2017 TECHNIQUE: Grayscale, color and doppler ultrasound images were obtained of the bilateral lower extremity venous vasculature. RIGHT: No thrombus identified in the common femoral vein, femoral vein, popliteal vein or visualized calf veins. LEFT: No thrombus identified in the common femoral vein, femoral vein, popliteal vein or visualized calf veins. IMPRESSION: * No thrombus identified in deep venous system of bilateral lower extremities. Electronically signed by: Michael Sapp MD (09/13/2019 10:01 AM) [id number]
[2019-09-13] MEDS ORDERED: FUROSEMIDE 40 MG/4 ML VIAL IVP ONE ×3 (10:30→22:30)
[2019-09-13 10:36] VITALS: BP 170/73
[2019-09-13 11:13] LABS: THYROID STIM HORMONE (TSH) 4.3 uIU/mL (0.358-3.740)
--- NOTE | 2019-09-13 11:21 | PDOC2 ---
CONSULT Date of Admission DATE: 09/13/19 TIME: 11:20 Reason for Consult: Chest pain Referring Physician: Dr. Vogel Chief Complaint Chest pain Source: Chart review, Patient Problem List Problems Medical Problems: (1) Chest pain Status: Acute History of Present Illness 44-year-old male with history of chronic diastolic heart failure presented with retrosternal chest pain that he described as sharp in nature radiating to back and associated with mild shortness of breath. This is not related to exertion or food intake. He denied any orthopnea/PND, palpitations or syncope. He was found to have accelerated hypertension and admitted for further management. Of note, patient stated that he was not taking his medications since the last 4 to 5 months due to lack of insurance. Past Medical History Hypertension COPD Chronic diastolic heart failure Hyperlipidemia Obstructive sleep apnea Past Surgical History Cholecystectomy Ganglion cyst removal Family History Hypertension and hyperlipidemia Social History Patient smokes 1 pack cigarettes daily and admitted to social intake of alcohol. 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 Current Medications Current Medications Aspirin (Aspirin Chewable) 324 mg 1X ONCE PO Last administered on 09/12/19at 23:03; Start 09/12/19 at 22:45; Stop 09/12/19 at 22:50; Status DC Nitroglycerin (Nitro-Bid Oint) 1 inch 1X ONCE TP Last administered on 09/12/19at 23:03; Start 09/12/19 at 22:45; Stop 09/12/19 at 22:50; Status DC Enoxaparin Sodium (Lovenox 150mg Syringe) 150 mg 1X ONCE SQ Last administered on 09/13/19at 00:21; Start 09/12/19 at 22:45; Stop 09/12/19 at 22:58; Status DC Morphine Sulfate (Morphine 10mg Syringe) 10 mg 1X ONCE SQ Last administered on 09/13/19at 00:20; Start 09/13/19 at 00:30; Stop 09/13/19 at 00:31; Status DC Ondansetron HCl (Zofran) 4 mg PRN Q4HRS PRN IVP NAUSEA/VOMITING; Start 09/13/19 at 00:45; Stop 09/14/19 at 00:44 Morphine Sulfate (Morphine 2mg Syringe) 2 mg PRN Q4HRS PRN IVP PAIN Last administered on 09/13/19at 01:36; Start 09/13/19 at 00:45; Stop 09/14/19 at 00:44 Acetaminophen (Tylenol) 650 mg PRN Q4HRS PRN PO FEVER > 100.3'F; Start 09/13/19 at 00:45; Stop 09/14/19 at 00:44 Albuterol/ Ipratropium (Duoneb) 3 ml RTQID NEB Last administered on 09/13/19at 05:12; Start 09/13/19 at 08:00; Stop 09/14/19 at 07:59 Enoxaparin Sodium (Lovenox 100mg Syringe) 200 mg Q12HR SQ Last administered on 09/13/19at 09:00; Start 09/13/19 at 09:00 Aspirin (Aspirin Chewable) 81 mg DAILYWBKFT PO ; Start 09/13/19 at 08:00; Stop 09/13/19 at 10:59; Status DC Nitroglycerin (Nitro-Bid Oint) 1 inch TID TP ; Start 09/13/19 at 09:00 Sodium Chloride 1,000 ml @ 75 mls/hr 1X ONCE IV ; Start 09/13/19 at 01:00; Stop 09/13/19 at 14:19 Info (Anti-Coagulation Monitoring By Pharmacy) 1 each PRN DAILY PRN MC SEE COMMENTS; Start 09/13/19 at 01:00 Famotidine (Pepcid Vial) 20 mg 1X ONCE IVP Last administered on 09/13/19at 01:36; Start 09/13/19 at 01:45; Stop 09/13/19 at 01:46; Status DC Magnesium Hydroxide (Milk Of Magnesia) 2,400 mg 1X ONCE PO Last administered on 09/13/19at 01:35; Start 09/13/19 at 01:45; Stop 09/13/19 at 01:46; Status DC Magnesium Hydroxide (Milk Of Magnesia) 2,400 mg 1X ONCE PO ; Start 09/13/19 at 01:45; Stop 09/13/19 at 01:46; Status DC Famotidine (Pepcid Vial) 20 mg 1X ONCE IVP ; Start 09/13/19 at 01:45; Stop 09/13/19 at 01:46; Status DC Morphine Sulfate (Morphine 4mg Syringe) 4 mg 1X ONCE IV ; Start 09/13/19 at 01:45; Stop 09/13/19 at 01:46; Status DC Albuterol/ Ipratropium (Duoneb) 3 ml STK-MED ONCE .ROUTE ; Start 09/13/19 at 05:05; Stop 09/13/19 at 05:06; Status DC Aspirin (Aspirin Chewable) 81 mg DAILY PO Last administered on 09/13/19at 09:03; Start 09/13/19 at 09:00 Furosemide (Lasix) 40 mg BID94 PO Last administered on 09/13/19at 09:15; Start 09/13/19 at 09:00; Stop 09/13/19 at 11:01; Status DC Metoprolol Succinate (Toprol Xl) 25 mg DAILY PO Last administered on 09/13/19at 09:09; Start 09/13/19 at 09:00 Potassium Chloride (Klor-Con) 40 meq BIDWMEALS PO Last administered on 09/13/19at 09:03; Start 09/13/19 at 09:00 Acetaminophen/ Hydrocodone Bitart (Lortab 5/325) 1 tab PRN Q6HRS PRN PO MODERATE PAIN Last administered on 09/13/19at 09:04; Start 09/13/19 at 08:45 Furosemide (Lasix) 40 mg 1X ONCE IVP ; Start 09/13/19 at 10:30; Stop 09/13/19 at 10:31; Status DC Furosemide (Lasix) 40 mg 1X ONCE IVP ; Start 09/13/19 at 22:30; Stop 09/13/19 a t 22:31 Nicotine (Nicoderm Cq 21mg) 1 patch DAILY TD ; Start 09/13/19 at 12:00 Furosemide (Lasix) 40 mg BID94 PO ; Start 09/14/19 at 09:00 Active Scripts Active Reported Potassium Chloride (Potassium Chloride) 20 Meq Tablet.er 40 Meq PO BID Aspirin 81 Mg Tab.chew 81 Mg PO DAILY Lasix (Furosemide) 80 Mg Tablet 40 Mg PO BID Metoprolol Succinate ( Xl ) (Metoprolol Succinate) 25 Mg Tab.er.24h 25 Mg PO DAILY Allergies: Coded Allergies: Penicillins (Verified Allergy, Intermediate, 03/09/18) PSYCHOLOGICAL ROS: No: Hallucinations Eyes: No: Loss of vision HEENT: No: Epistaxis Cardiovascular: yes: Chest Pain Gastrointestinal: No: Vomiting, Diarrhea Genitourinary: No: Henaturia Neurological: No: Seizures Skin: No: Rash General: Alert, Oriented X3 HEENT: Atraumatic, PERRLA Lungs: Clear to auscultation Heart: Regular rate Abdomen: Normal bowel sounds Extremities: No edema Neuro: Normal speech Psych/Mental Status: Mood NL VITALS Vital Signs Date Time Temp Pulse Resp B/P (MAP) Pulse Ox O2 Delivery O2 Flow Rate FiO2 09/13/19 10:36 97.9 71 170/73 (105) 95 Room Air 09/13/19 10:04 18 09/13/19 09:04 2.0 Labs Laboratory Tests Test 09/12/19 06:55 09/12/19 22:30 09/13/19 03:15 09/13/19 06:55 Triglycerides Level 159 mg/dL (0-150) Cholesterol Level 222 mg/dL (0-200) LDL Cholesterol, Calculated 160 mg/dL (0-100) VLDL Cholesterol, Calculated 31 mg/dL (0-40) Non-HDL Cholesterol Calculated 191 mg/dL (0-129) HDL Cholesterol 31 mg/dL (40-60) Cholesterol/HDL Ratio 7.0 Thyroid Stimulating Hormone (TSH) 4.300 uIU/mL (0.358-3.740) White Blood Count 9.1 x10^3/uL (4.0-11.0) Red Blood Count 5.33 x10^6/uL (4.30-5.70) Hemoglobin 15.8 g/dL (13.0-17.5) Hematocrit 47.0 % (39.0-53.0) Mean Corpuscular Volume 88 fL (79-100) Mean Corpuscular Hemoglobin 30 pg (25-35) Mean Corpuscular Hemoglobin Concent 34 g/dL (31-37) Red Cell Distribution Width 14.4 % (11.5-14.5) Platelet Count 246 x10^3/uL (140-400) Neutrophils (%) (Auto) 68 % (31-73) Lymphocytes (%) (Auto) 22 % (24-48) Monocytes (%) (Auto) 7 % (0-9) Eosinophils (%) (Auto) 3 % (0-3) Basophils (%) (Auto) 0 % (0-3) Neutrophils # (Auto) 6.1 x10^3uL (1.8-7.7) Lymphocytes # (Auto) 2.0 x10^3/uL (1.0-4.8) Monocytes # (Auto) 0.6 x10^3/uL (0.0-1.1) Eosinophils # (Auto) 0.2 x10^3/uL (0.0-0.7) Basophils # (Auto) 0.0 x10^3/uL (0.0-0.2) Prothrombin Time < 9.3 SEC (9.4-11.4) Prothromb Time International Ratio 0.9 (0.9-1.1) Activated Partial Thromboplast Time 30 SEC (23-33) D-Dimer (Yaritza) 0.47 mg/L (0.00-0.50) Sodium Level 141 mmol/L (136-145) Potassium Level 4.0 mmol/L (3.5-5.1) Chloride Level 103 mmol/L (98-107) Carbon Dioxide Level 32 mmol/L (21-32) Anion Gap 6 (6-14) Blood Urea Nitrogen 11 mg/dL (8-26) Creatinine 0.9 mg/dL (0.7-1.3) Estimated GFR (Cockcroft-Gault) 91.3 Glucose Level 126 mg/dL (70-99) Calcium Level 9.2 mg/dL (8.5-10.1) Magnesium Level 2.1 mg/dL (1.8-2.4) Total Bilirubin 0.3 mg/dL (0.2-1.0) Direct Bilirubin 0.1 mg/dL (0.0-0.2) Aspartate Amino Transf (AST/SGOT) 12 U/L (15-37) Alanine Aminotransferase (ALT/SGPT) 32 U/L (16-63) Alkaline Phosphatase 58 U/L (46-116) Creatine Kinase 64 U/L (39-308) Troponin I Quantitative 0.029 ng/mL (0-0.055) 0.018 ng/mL (0-0.055) XI-Nxf-W-Type Natriuretic Peptide 47 pg/mL (0-124) Total Protein 7.6 g/dL (6.4-8.2) Albumin 3.8 g/dL (3.4-5.0) Lipase 78 U/L (73-393) Urine Collection Type Unknown Urine Color [place]oret[place] Urine Clarity Clear Urine pH 5.5 Urine Specific [place] >=1.030 Urine Protein 30 mg/dl (NEG-TRACE) Urine Glucose (UA) Neg mg/dL (NEG) Urine Ketones (Stick) 15 mg/dL (NEG) Urine Blood Neg (NEG) Urine Nitrite Neg (NEG) Urine Bilirubin Neg (NEG) Urine Urobilinogen Dipstick 1.0 mg/dL (0.2 mg/dL) Urine Leukocyte Esterase Neg (NEG) Urine RBC 1-2 /HPF (0-2) Urine WBC 1-4 /HPF (0-4) Urine Squamous Epithelial Cells Few /LPF Urine Bacteria 0 /HPF (0-FEW) Urine Hyaline Casts Mod /HPF Urine Mucus Marked /LPF Urine Opiates Screen Pos (NEG) Urine Methadone Screen Neg (NEG) Urine Barbiturates Neg (NEG) Urine Phencyclidine Screen Neg (NEG) Urine Amphetamine/Methamphetamine Neg (NEG) Urine Benzodiazepines Screen Neg (NEG) Urine Cocaine Screen Neg (NEG) Urine Cannabinoids Screen Neg (NEG) Urine Ethyl Alcohol Neg (NEG) Amylase Level 24 U/L (25-115) Test 09/13/19 09:51 D-Dimer (Yaritza) 0.37 mg/L (0.00-0.50) Troponin I Quantitative < 0.017 ng/mL (0-0.055) Assessment/Plan 1. Chest pain with atypical features. Myocardial infarction has been ruled out. 2D echo in 2016 showed normal LV systolic function. He would benefit from outpatient ischemic evaluation but patient was not sure about getting this done due to lack of insurance. 2. Accelerated hypertension: Secondary to not taking medications since last 4 months. Blood pressure much better controlled after resuming his ant ihypertensives. 3. Chronic diastolic heart failure: Clinically well compensated. Continue Lasix. Thank you for your consultation. JAIRO LEE MD Sep 13, 2019 11:20
[2019-09-13] MEDS ORDERED: NICOTINE 21MG PATCH. TD SCH (12:00)
[2019-09-13 16:03] VITALS: BP 139/85
--- NOTE | 2019-09-13 19:11 | SSS ---
ADMIT DATE: 09/13/2019 HISTORY OF PRESENT ILLNESS: The patient is a 44-year-old male patient who presented to the Emergency Room with chest pain between his shoulder blades and back. He also complained of shortness of breath. Denied any nausea or vomiting. Denied any diaphoresis. Did complain of numbness in his legs. He also complained of shortness of breath, stated that the pain started last night and got considerably worse, caused him to stop at the hospital. He has past medical history of COPD, accelerated hypertension, congestive heart failure, morbid obesity and diabetes. The patient does continue to smoke. He states that he does not follow up with any doctors. He was evaluated by the bean sprout grower at [facility]. 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 The patient denied any history of immunosuppression. Denied any history of recent ill contact. He was extensively investigated, has had a chest x-ray, which showed borderline cardiomegaly. He was extensively investigated and has had 3 sets of cardiac enzymes, ruled out myocardial infarction. PAST MEDICAL HISTORY: Significant for hypertension, chronic obstructive pulmonary disease, chronic diastolic congestive heart failure, chronic constipation, hyperlipidemia. He has also signs and symptoms of obstructive sleep apnea, generalized osteoarthritis as well as what seemed to be neurogenic claudication. PAST SURGICAL HISTORY: Significant for cholecystectomy and ganglion cyst removal from the medial aspect of the right ankle joint complicated by infection. 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 He was on metoprolol 25 mg extended release once a day, furosemide 80 mg once a day and aspirin 81 mg once a day, however, he lost his insurance about 4 months ago and has been out without any medication at that time. FAMILY HISTORY: He has 1 brother and 3 sisters, one of his sisters has pulmonary embolism. His mother at the age of 70 because of lymphoma and has had a history of pulmonary embolism. Father is still alive and he is at the age of 66. He is known to have hypertension as well as hyperlipidemia. SOCIAL HISTORY: He is . He has 1 son and 2 daughters. He smokes about a pack a day. He drinks alcohol very occasionally. He does not use any drugs. 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 REVIEW OF SYSTEMS: The patient denied any blurring of vision, cataract, glaucoma or macular degeneration. Denied any earache, tinnitus or sensorineural deafness. Denied any nosebleeds, stuffy nose or postnasal drip. Denied any sore throat, sore tongue, toothache, hoarseness of voice or difficulty swallowing. Denied any nausea, vomiting, diarrhea or constipation. Denied any hematemesis, melena, or hematochezia. Did complain of frequency and nocturia. PHYSICAL EXAMINATION: GENERAL: On arrival when I saw him, he looked well and was clearly in no apparent respiratory distress. No pallor, jaundice, cyanosis or thyromegaly. No jugular venous distention. Mild bilateral lower limb edema, probably due to chronic venous stasis. VITAL SIGNS: His heart rate was 76, blood pressure was 160/79, temperature was 97.9, respiratory rate was 18 and oxygen saturation was 94% on room air. HEAD, EYES, EARS, NOSE AND THROAT: Showed normocephalic, atraumatic. NECK: Supple. HEART: Showed normal first and second heart sounds. No gallop, rub or murmur. CHEST: Clear to auscultation. No crepitation or rhonchi. ABDOMEN: Distended, soft, nontender. NEUROLOGICALLY: He was grossly intact. LABORATORY DATA: His lab work showed a white cell count of 9100, hemoglobin 16, hematocrit 47, MCV 88 and platelet count 246,000. His chemistry showed a serum sodium 141, potassium 4, chloride 103, bicarbonate 32, anion gap of 6, BUN 11, creatinine 0.9, estimated GFR was 91 mL per minute. His glucose 126, calcium was 9.2, magnesium 2.1. Total bilirubin, AST, ALT, alkaline phosphatase were normal. Total protein was 7.6, albumin 3.8. CK was 64. First troponin was 0.029 and second troponin was 0.018 and the last one was less than 0.017. His amylase and lipase were normal. His prothrombin time, INR and aPTT were normal. D-dimer also was normal. Urinalysis was essentially unremarkable and toxic screen was positive for opiates, negative for all other medication. His chest x-ray showed the patient has borderline cardiomegaly that is stable, mild prominence of the pulmonary vasculature without discrete vascular congestion evident stable, mediastinal silhouette is normal. No pneumothorax, pulmonary opacities or pleural effusion. Bones are unremarkable. Has had a venous Doppler ultrasound of both lower extremities showed that there are no thrombi identified in deep venous system bilateral lower extremities. I actually clinically examined him and also used a handheld Doppler ultrasound and his both dorsalis pedis and tibialis posterior easily palpable and audible. ASSESSMENT AND PLAN: In summary, this is a 44-year-old male patient who basically came in with accelerated hypertension, probably acute on chronic diastolic congestive heart failure. He has also chronic obstructive pulmonary disease. Unfortunately, he continues to smoke, has also morbid obesity and obstructive sleep apnea. He has all the Hallmarks. He is snoring. 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 He has also what seemed to be a neurogenic claudication. We did consult the bean sprout grower and he had mild elevation of troponin, probably demand ischemia due to accelerated hypertension. The patient wants to go home and therefore, I discharged him with a prescription for his Lasix, potassium, metoprolol and aspirin. I explained that his biggest problem is to stop cigarette smoking. He probably needs a sleep study and an MRI, most likely has neurogenic claudication. SHAHZAD MACEDO MD DR: KARINA/berenice JOB#: [id number] / [id number]
[2019-09-14] MEDS ORDERED: FUROSEMIDE 40 MG/4 ML VIAL IVP ONE (02:00)
[2019-09-14] MEDS ORDERED: FUROSEMIDE 40 MG TABLET PO SCH (09:00)
== END 2019-09-13 17:45 | disposition home or self-care (01) | DRG 292 ==
LOC: ER 22:30 → 1 SOUTH 09-13 00:30
PROVIDERS: ADMIT Internal Medicine; ATTEND Internal Medicine
DX: I11.0 Hypertensive heart disease with heart failure (principal); Z68.43 Body mass index [BMI] 50.0-59.9, adult; I24.8 Other forms of acute ischemic heart disease; I50.33 Acute on chronic diastolic (congestive) heart failure; E66.01 Morbid (severe) obesity due to excess calories; J44.9 Chronic obstructive pulmonary disease, unspecified; Z80.7 Family history of other malignant neoplasms of lymphoid, hematopoietic and related tissues; Z82.49 Family history of ischemic heart disease and other diseases of the circulatory system; E78.5 Hyperlipidemia, unspecified; E11.9 Type 2 diabetes mellitus without complications; F17.210 Nicotine dependence, cigarettes, uncomplicated; G47.33 Obstructive sleep apnea (adult) (pediatric); Z88.0 Allergy status to penicillin; K59.09 Other constipation; Z90.49 Acquired absence of other specified parts of digestive tract
CPT/HCPCS: 36415; 71046; 80048; 80061; 80076; 80307; 81001; 82150; 82550; 83690; 83735; 83880; 84443; 84484; 85025; 85379; 85610; 85730; 93005; 93970; 94640; 96372; 96374; 96375; J1650; J1940; J2270; J3490; 99285-25

== ENCOUNTER 2020-06-01 13:59 | Inpatient (IN) | payer SELFPAY ==
[~2020-06-01] VITALS: Ht 205.7 cm; Wt 245.8 kg
[~2020-06-01 13:59] MED LIST changes: +POTA20TA4 PO
--- NOTE | 2020-06-01 14:50 | EKG ---
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
[2020-06-01 14:59] LABS: BASO # 0.1 x10^3/uL (0.0-0.2); BASO % 1 % (0-3); EOS # 0.2 x10^3/uL (0.0-0.7); EOS % 3 % (0-3); HEMOGLOBIN 15.5 g/dL (13.0-17.5); LYMPH # 1.6 x10^3/uL (1.0-4.8); LYMPH % 20 % (24-48); MEAN CORPUSCULAR HEMOGLOBIN 29 pg (25-35); MEAN CORPUSCULAR HGB CONC 34 g/dL (31-37); MEAN CORPUSCULAR VOLUME 87 fL (79-100); MONO # 0.4 x10^3/uL (0.0-1.1); MONO % 5 % (0-9); NEUT # 5.6 x10^3uL (1.8-7.7); NEUT % 71 % (31-73); PLATELET COUNT 246 x10^3/uL (140-400); RED CELL DISTRIBUTION WIDTH 14.4 % (11.5-14.5); WHITE BLOOD COUNT 7.9 x10^3/uL (4.0-11.0)
--- NOTE | 2020-06-01 15:15 | RAD ---
EXAM: XR CHEST 1V 06/01/2020 2:32 PM CLINICAL INDICATION: Chest pain COMPARISON: Chest radiograph 09/13/2019 TECHNIQUE: AP upright view the chest FINDINGS: Exam is mildly limited by underpenetration and body habitus. The cardiomediastinal silhoue tte is normal. There is no definite consolidation, pleural effusion, or pneumothorax. No pleural effu daquan. IMPRESSION: No definite acute acute abnormality or change from prior exam. Electronically signed by: Steffanie Jiménez MD (06/01/2020 3:12 PM) [id number]
[2020-06-01 15:16] LABS: CREATININE 0.9 mg/dL (0.7-1.3); GFR 90.8; POTASSIUM 3.7 mmol/L (3.5-5.1)
[2020-06-01 15:27] LABS: ALBUMIN 3.3 g/dL (3.4-5.0); ALBUMIN/GLOBULIN RATIO 0.8 (1.0-1.7); TOTAL BILIRUBIN 0.3 mg/dL (0.2-1.0); TOTAL PROTEIN 7.4 g/dL (6.4-8.2)
--- NOTE | 2020-06-01 16:03 | PHYS DOC ---
Past History Past Medical History: Hypertension, Other Additional Past Medical Histor: PERIPHERAL EDEMA, MORBID OBESITY Past Surgical History: No Surgical History Smoking: Greater than 1 pack/day Additional Smoking Information: PACK/DAY Alcohol Use: Sober Drug Use: None General Adult EDM: Chief Complaint: CHEST PAIN HPI: HPI: Patient is a [age] year old [sex] who presents with [] Review of Systems: Review of Systems: Constitutional: Denies fever or chills Eyes: Denies change in visual acuity HENT: Denies nasal congestion or sore throat Respiratory: Denies cough or shortness of breath Cardiovascular: Denies chest pain or edema GI: Denies abdominal pain, nausea, vomiting, bloody stools or diarrhea : Denies dysuria Musculoskeletal: Denies back pain or joint pain Integument: Denies rash Neurologic: Denies headache, focal weakness or sensory changes Endocrine: Denies polyuria or polydipsia Lymphatic: Denies swollen glands Psychiatric: Denies depression or anxiety Allergies: Allergies: Allergies Coded Allergies Type Severity Reaction Last Updated Verified Penicillins Allergy Intermediate 03/09/18 Yes Physical Exam: PE: Constitutional: Well developed, well nourished, no acute distress, non-toxic appearance. [] HENT: Normocephalic, atraumatic, bilateral external ears normal, oropharynx moist, no oral exudates, nose normal. [] Eyes: PERRLA, EOMI, conjunctiva normal, no discharge. [] Neck: Normal range of motion, no tenderness, supple, no stridor. [] Cardiovascular:Heart rate regular rhythm, no murmur [] Lungs & Thorax: Bilateral breath sounds clear to auscultation [] Abdomen: Bowel sounds normal, soft, no tenderness, no masses, no pulsatile masses. [] Skin: Warm, dry, no erythema, no rash. [] Back: No tenderness, no CVA tenderness. [] Extremities: No tenderness, no cyanosis, no clubbing, ROM intact, no edema. [] Neurologic: Alert and oriented X 3, normal motor function, normal sensory function, no focal deficits noted. [] Psychologic: Affect normal, judgement normal, mood normal. [] Current Patient Data: Labs: Laboratory Tests Test 06/01/20 14:25 White Blood Count 7.9 x10^3/uL (4.0-11.0) Red Blood Count 5.30 x10^6/uL (4.30-5.70) Hemoglobin 15.5 g/dL (13.0-17.5) Hematocrit 46.0 % (39.0-53.0) Mean Corpuscular Volume 87 fL (79-100) Mean Corpuscular Hemoglobin 29 pg (25-35) Mean Corpuscular Hemoglobin Concent 34 g/dL (31-37) Red Cell Distribution Width 14.4 % (11.5-14.5) Platelet Count 246 x10^3/uL (140-400) Neutrophils (%) (Auto) 71 % (31-73) Lymphocytes (%) (Auto) 20 % (24-48) L Monocytes (%) (Auto) 5 % (0-9) Eosinophils (%) (Auto) 3 % (0-3) Basophils (%) (Auto) 1 % (0-3) Neutrophils # (Auto) 5.6 x10^3uL (1.8-7.7) Lymphocytes # (Auto) 1.6 x10^3/uL (1.0-4.8) Monocytes # (Auto) 0.4 x10^3/uL (0.0-1.1) Eosinophils # (Auto) 0.2 x10^3/uL (0.0-0.7) Basophils # (Auto) 0.1 x10^3/uL (0.0-0.2) D-Dimer (Yaritza) 0.45 mg/L (0.00-0.50) Sodium Level 140 mmol/L (136-145) Potassium Level 3.7 mmol/L (3.5-5.1) Chloride Level 103 mmol/L (98-107) Carbon Dioxide Level 27 mmol/L (21-32) Anion Gap 10 (6-14) Blood Urea Nitrogen 11 mg/dL (8-26) Creatinine 0.9 mg/dL (0.7-1.3) Estimated GFR (Cockcroft-Gault) 90.8 BUN/Creatinine Ratio 12 (6-20) Glucose Level 196 mg/dL (70-99) H Calcium Level 9.0 mg/dL (8.5-10.1) Total Bilirubin 0.3 mg/dL (0.2-1.0) Aspartate Amino Transferase (AST) 12 U/L (15-37) L Alanine Aminotransferase (ALT) 25 U/L (16-63) Alkaline Phosphatase 64 U/L (46-116) Creatine Kinase 59 U/L (39-308) Troponin I Quantitative 0.025 ng/mL (0-0.055) RI-Vuq-C-Type Natriuretic Peptide 39 pg/mL (0-124) Total Protein 7.4 g/dL (6.4-8.2) Albumin 3.3 g/dL (3.4-5.0) L Albumin/Globulin Ratio 0.8 (1.0-1.7) L Vital Signs: Vital Signs Date Time Temp Pulse Resp B/P (MAP) Pulse Ox O2 Delivery O2 Flow Rate FiO2 06/01/20 14:10 97.9 92 24 135/71 (92) 96 Room Air EKG: EKG: [] Radiology/Procedures: Radiology/Procedures: []PATIENT: MACARENA JOHNSON SACCOUNT: [id number]#: [id number] : 1975 LOCATION: ER AGE: 45 SEX: M EXAM STATUS: REG ER ORD. PHYSICIAN: MAR COOPER DO REASON: chest pain PROCEDURE: PORTABLE CHEST 1V EXAM: XR CHEST 1V 06/01/2020 2:32 PM CLINICAL INDICATION: Chest pain COMPARISON: Chest radiograph 09/13/2019 TECHNIQUE: AP upright view the chest FINDINGS: Exam is mildly limited by underpenetration and body habitus. The cardiomediastinal silhouette is normal. There is no definite consolidation, p leural effusion, or pneumothorax. No pleural effusion. IMPRESSION: No definite acute acute abnormality or change from prior exam. Electronically signed by: Steffanie Jiménez MD (06/01/2020 3:12 PM) [id number] Heart Score: HEART Score for Chest Pain: HEART Score for Chest Pain Response (Comments) Value History Moderately Suspicious 1 Age >45 - < 65 1 Risk Factors >3 Risk Factors or Hx CAD 2 Troponin < Normal Limit 0 Total 4 Risk Factors: Risk Factors: DM, Current or recent (<one month) smoker, HTN, HLP, family history of CAD, obesity. Risk Scores: Score 0 - 3: 2.5% MACE over next 6 weeks - Discharge Home Score 4 - 6: 20.3% MACE over next 6 weeks - Admit for Clinical Observation Score 7 - 10: 72.7% MACE over next 6 weeks - Early Invasive Strategies Course & Med Decision Making: Course & Med Decision Making Pertinent Labs and Imaging studies reviewed. (See chart for details) [] Dragon Disclaimer: Dragon Disclaimer: This electronic medical record was generated, in whole or in part, using a voice recognition dictation system. Departure Departure: Impression: Primary Impression: Congestive heart failure (CHF) Qualified Codes: I50.9 - Heart failure, unspecified Additional Impression: Chest pain Qualified Codes: R07.89 - Other chest pain Disposition: 09 ADMITTED INPT THIS HOSP Admitting Physician: Shaheen Hughes Condition: STABLE Referrals: PCPEDNA (PCP) JAH IRIZARRY APRN Jun 01, 2020 16:03
[2020-06-01] MEDS ORDERED: ASPIRIN CHEWABLE 81 MG TABLET. PO ONE (16:15)
[2020-06-01] MEDS ORDERED: FUROSEMIDE 40 MG/4 ML VIAL IVP ONE ×2 (16:15→21:00)
[2020-06-01] MEDS ORDERED: NITROGLYCERIN OINT 1 GM PACKET. TP ONE (16:15)
[2020-06-01] MEDS ORDERED: MORPHINE SULFATE 4 MG/ML DISP.SYRIN. IV ONE (16:15)
[2020-06-01] MEDS ORDERED: ONDANSETRON PF 4 MG/2 ML VIAL. IVP ONE (16:15)
[2020-06-01 17:57] VITALS: BP 137/78
[2020-06-01] MEDS ORDERED: DEXTROSE 50% 25 GM / 50ML DISP.SYRIN. IV PRN (18:15)
[2020-06-01] MEDS ORDERED: NICOTINE 21MG PATCH. TD PRN (18:15)
[2020-06-01 19:42] VITALS: BP 119/68
[2020-06-01] MEDS: POTASSIUM CHLORIDE 20 MEQ TABLET.ER. PO SCH (20:27)
[2020-06-01] MEDS: MORPHINE SULFATE 4 MG/ML DISP.SYRIN. IV PRN (20:28)
[2020-06-01 23:00] VITALS: BP 149/72
[2020-06-02 03:00] VITALS: BP 133/67
[2020-06-02] MEDS: MORPHINE SULFATE 4 MG/ML DISP.SYRIN. IV PRN ×4 (03:54→22:18)
[2020-06-02 06:33] LABS: CALCIUM 8.7 mg/dL (8.5-10.1); CREATININE 1.1 mg/dL (0.7-1.3); GFR 72.1; POTASSIUM 4.2 mmol/L (3.5-5.1)
[2020-06-02] MEDS: FUROSEMIDE 40 MG/4 ML VIAL IVP SCH ×2 (08:03→14:00)
[2020-06-02] MEDS: METOPROLOL SUCC 24HR ER 25 MG TAB.ER.24H. PO SCH (08:03)
[2020-06-02] MEDS: ASPIRIN CHEWABLE 81 MG TABLET. PO SCH (08:03)
[2020-06-02] MEDS: POTASSIUM CHLORIDE 20 MEQ TABLET.ER. PO SCH ×2 (08:04→20:07)
[2020-06-02 08:23] VITALS: BP 155/84
[2020-06-02 09:54] VITALS: BP 106/64
--- NOTE | 2020-06-02 14:11 | HP ---
ADMIT DATE: 06/01/2020 HISTORY OF PRESENT ILLNESS: The patient is a 45-year-old male patient who came to the Emergency Room with complaint of chest pain, shortness of breath, cough, swelling of both lower extremities and pain in both lower extremities. He was extensively investigated in the Emergency Room and has had lab work which was mostly unremarkable ____ except that his blood sugar was high at 196. His first set of troponin was 0.025. His D-dimer was 0.45. His hemoglobin, hematocrit, white cell count and platelets are all within normal range. His chest x-ray showed the cardiomediastinal silhouette is normal. There is no definite consolidation, pleural effusion, pneumothorax. The patient was treated with IV Lasix as well as aspirin and nitroglycerin and was admitted for further evaluation and treatment. PAST MEDICAL HISTORY: Significant for hypertension, chronic obstructive pulmonary disease, chronic diastolic congestive heart failure, chronic constipation, hyperlipidemia. He is also morbidly obese and probably has obstructive sleep apnea, generalized osteoarthritis as well as what seemed to be neurogenic claudication. PAST SURGICAL HISTORY: Significant for cholecystectomy and ganglion cyst removal from the medial aspect of the right ankle joint, complicated by infection. ALLERGIES: HE WAS DIAGNOSED WITH PENICILLIN ALLERGY, WHEN HE WAS YOUNG; HOWEVER, HE IS TAKING AMOXICILLIN WITHOUT ANY DIFFICULTY. FAMILY HISTORY: He has 1 brother and 3 sisters, one of his sisters has pulmonary embolism. His mother at the age of 70 because of lymphoma and has had history of pulmonary embolism. Father is still alive and he is at the age of 67. He is known to have hypertension as well as hyperlipidemia. SOCIAL HISTORY: , has 1 son and 2 daughters. He smokes about a pack a day. He drinks alcohol very occasionally. He does not use any drugs. 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 MEDICATIONS: He is currently on following medications: Metoprolol succinate 25 mg once a day, aspirin 81 mg once a day, potassium 40 mEq twice a day and furosemide 80 mg twice a day. REVIEW OF SYSTEMS: As per history of present illness. PHYSICAL EXAMINATION: GENERAL: On arrival to the Emergency Room, the patient was somewhat tachypneic, but there is no pallor, jaundice or cyanosis. No lymphadenopathy, no thyromegaly. No jugular venous distention, but mild bilateral lower limb edema. VITAL SIGNS: His heart rate was 92, blood pressure was 135/71, temperature was 97.9, respiratory rate was 24, and oxygen saturation was 96% on room air. HEAD, EYES, EARS, NOSE AND THROAT: Showed normocephalic and atraumatic. NECK: Supple. HEART: Showed distant first and second heart sounds. No gallop, rub or murmur. CHEST: Shows central trachea, equally reduced expansion, reduced air entry, vesicular breath sounds. I could not really appreciate any crepitation or rhonchi. ABDOMEN: Distended, soft, nontender. NEUROLOGIC: He was awake, alert, responding appropriately. All cranial nerves intact. EXTREMITIES: He moves extremities without difficulty. He ambulates without assistance or assistive devices. LABORATORY DATA: His lab work on admission showed a white cell count 7900, hemoglobin 15.5, hematocrit 46, MCV 87 and platelet count of 246,000. His chemistry showed a serum sodium of 140, potassium 3.7, chloride 103, bicarbonate 27, anion gap of 10, BUN 11, creatinine 0.9, estimated GFR was 90 mL per minute. Her glucose 106, calcium was 9. Total bilirubin, AST, ALT, alkaline phosphatase were normal. CK was 59. Troponin was 0.025. Beta natriuretic peptide was only 39 and total protein was 7.4, albumin was 3.3. His D-dimer was 0.45 mg/dL . His chest x-ray showed no definite acute abnormality or change from prior exam. ASSESSMENT AND PLAN: The patient was admitted with acute on chronic diastolic congestive heart failure, chest pain, acute myocardial infarction was ruled out as he has 3 sets of cardiac enzymes that ruled out myocardial infarction. He has also severe bilateral lower extremity pain, most likely due to neurogenic claudication. As I believe we have done before. We did venous Doppler ultrasound of both lower extremities, which showed no evidence of deep vein thrombosis. We did also a hand-held Doppler ultrasound of both dorsalis pedis and tibialis posterior are easily palpable and audible. PLAN: My plan is to continue with IV Lasix. I will repeat his venous Doppler ultrasound and also order an echocardiogram and consult the sales performance manager. SHAHZAD MACEDO MD DR: KARINA/berenice JOB#: [id number] / [id number]
[2020-06-02 16:03] VITALS: BP 151/73
--- NOTE | 2020-06-02 17:12 | RAD ---
EXAM: Bilateral lower extremity venous Doppler. HISTORY: Bilateral lower extremity pain/swelling. COMPARISON: None. FINDINGS: Grayscale and Doppler analysis of the both lower extremity deep venous systems was performe d with graded compression and augmentation. The common femoral, greater saphenous, superficial femora l, popliteal and calf veins were assessed. There is no evidence of deep venous thrombosis. IMPRESSION: 1. No evidence of deep venous thrombosis. Electronically signed by: Petr Marie MD (06/02/2020 5:10 PM) [id number]
[2020-06-02 19:55] VITALS: BP 150/88
[2020-06-02] MEDS: ENOXAPARIN ** NOTE DOSE ** SYRINGE SQ SCH (20:08)
--- NOTE | 2020-06-02 20:11 | CONS ---
DATE OF CONSULTATION: 06/02/2020 REASON FOR CONSULTATION: Heart failure. HISTORY OF PRESENT ILLNESS: The patient is a 45-year-old male with past medical history as noted below, who presents to the hospital approximately 24 hours ago in the setting of worsening volume overload. He has been given intravenous Lasix. He diuresed approximately 2 liters and feels better. He has a longstanding history of morbid obesity and previously had a stress test approximately 6 or 7 years ago, which reportedly was normal. At the present time, the patient denies any active angina, does have chronic dyspnea related to his morbid obesity. No syncope, palpitations, orthopnea, or PND. PAST MEDICAL HISTORY: 1. Hypertension. 2. Prediabetes. 3. Morbid obesity. FAMILY HISTORY: Notable for increased risk of blood clots and is currently being worked up for that with a DVT scan. ALLERGIES: PENICILLIN. REVIEW OF SYSTEMS: Negative for 03/03 systems reviewed, unless otherwise mentioned above in HPI. CURRENT CARDIOVASCULAR MEDICATIONS: As follows: 1. Lovenox 60 mg subcutaneous every 12 hours. 2. Lasix 80 mg IV b.i.d. 3. Metoprolol XL 25 mg daily. 4. Aspirin 81 mg daily. 5. Potassium 20 mEq p.o. b.i.d. PHYSICAL EXAMINATION: VITAL SIGNS: Afebrile, 73, 24, 151/70, 93% on room air. GENERAL: He is alert and oriented, no acute distress. HEAD AND NECK: Unremarkable. CARDIAC: Distant heart sounds, but otherwise regular rate and rhythm without murmurs, rubs or gallops. LUNGS: Notable for decreased breath sounds at the bases. ABDOMEN: Obese, protuberant, nontender, nondistended, without any obvious fluid wave. EXTREMITIES: Lower extremities are notable for bilateral chronic venous stasis changes with trace edema. 2+ radial and dorsalis pedis pulses. NEUROLOGIC: No focal deficits. MUSCULOSKELETAL: No trauma. DIAGNOSTIC STUDIES: Cardiac enzymes and EKG are unremarkable. CBC and BMP are also unremarkable. Imaging reveals a chest x-ray without any acute pathology. A lower extremity duplex ultrasound is currently pending. IMPRESSION: 1. Acute on chronic likely diastolic heart failure. 2. Hypertension. RECOMMENDATIONS: At this present time, okay to discharge the patient on oral diuretic therapy and to follow up on an outpatient basis with an echocardiogram. He needs risk factor modification including weight loss and likely outpatient sleep study. Further recommendations based on evaluation on an outpatient basis. He can be likely discharged on Lasix 40 mg p.o. b.i.d. along with potassium and continue his aspirin and beta stepan therapy. Supportive care for now. Thank you for this consultation. ROSE YOUNG MD DR: LEIA/berenice JOB#: [id number] / [id number]
--- NOTE | 2020-06-02 21:10 | PN ---
DATE: SUBJECTIVE: The patient continues to complain of shortness of breath, cough, swelling of both lower extremities, and pain in both lower extremities, apparently has a strong family history of DVT and PE and we did actually venous Doppler ultrasound on his last admission that was negative, that was in 2018. PHYSICAL EXAMINATION: GENERAL: When I examined him this afternoon, he looked well and was clearly in no apparent respiratory distress. No pallor, jaundice, cyanosis, or thyromegaly. No jugular venous distention or limb edema. VITAL SIGNS: His heart rate was 78, blood pressure was 106/64, temperature was 98.3, respiratory rate was 20, and oxygen saturation was 88% on 1.5 liters of oxygen. HEAD, EYES, EARS, NOSE AND THROAT: Showed normocephalic, atraumatic. NECK: Supple. HEART: Showed normal first and second sounds. No gallop or murmur. CHEST: Showed central trachea, equally reduced expansion, reduced air entry, vesicular sounds, very few scattered rhonchi. ABDOMEN: Distended, soft, nontender. NEUROLOGIC: He was grossly intact. LABORATORY DATA: His lab work this morning showed a serum sodium of 140, potassium 4.2, chloride 103, bicarbonate 29, anion gap of 8, BUN 16, creatinine 1.1, estimated GFR was 72 mL per minute. His glucose was 155, calcium was 8.7. He has 3 sets of cardiac enzymes that ruled out myocardial infarction. ASSESSMENT AND PLAN: 1. Acute probably on chronic diastolic congestive heart failure. 2. Hypertension. 3. Morbid obesity, probably obstructive sleep apnea. 4. The patient probably has neurogenic claudication at least did before as his dorsalis pedis and tibialis posterior are easily palpable making peripheral arterial disease less likely as the cause of his pain. I will arrange for again bilateral venous Doppler ultrasound and an echocardiogram and to consult the Cardiology team. SHAHZAD MACEDO MD DR: KARINA/berenice JOB#: [id number] / [id number]
[2020-06-03 00:47] VITALS: BP 165/80
[2020-06-03 02:14] LABS: HEMOGLOBIN A1C 6.7 % (4.8-5.6)
[2020-06-03] MEDS: MORPHINE SULFATE 4 MG/ML DISP.SYRIN. IV PRN ×2 (05:02→10:51)
[2020-06-03 06:25] VITALS: BP 153/77
[2020-06-03 07:10] LABS: CALCIUM 8.9 mg/dL (8.5-10.1); GFR 80.4
[2020-06-03] MEDS: FUROSEMIDE 40 MG/4 ML VIAL IVP SCH (08:22)
[2020-06-03] MEDS: ENOXAPARIN ** NOTE DOSE ** SYRINGE SQ SCH (08:22)
[2020-06-03] MEDS: ASPIRIN CHEWABLE 81 MG TABLET. PO SCH (08:22)
[2020-06-03] MEDS: POTASSIUM CHLORIDE 20 MEQ TABLET.ER. PO SCH (08:23)
--- NOTE | 2020-06-03 08:37 | PDOC ---
CARDIO Progress Notes Date & Time Date of Service DATE: 06/03/20 TIME: 08:36 Time of Evaluation 08:36 Subjective Notes SOA, edema better Vitals Vitals Vital Signs Date Time Temp Pulse Resp B/P (MAP) Pulse Ox O2 Delivery O2 Flow Rate FiO2 06/03/20 07:57 Room Air 06/03/20 06:25 97.6 76 22 153/77 (102) 94 06/02/20 09:54 1.5 Weight Weight [ ] Input and Output I.O. Intake and Output 06/03/20 07:00 Intake Total 2230 ml Output Total 3550 ml Balance -1320 ml Intake Oral 2230 ml Output Urine Total 3550 ml Laboratory Labs Laboratory Tests Test 06/01/20 14:25 06/01/20 19:33 06/01/20 20:13 06/02/20 05:53 White Blood Count 7.9 x10^3/uL (4.0-11.0) Red Blood Count 5.30 x10^6/uL (4.30-5.70) Hemoglobin 15.5 g/dL (13.0-17.5) Hematocrit 46.0 % (39.0-53.0) Mean Corpuscular Volume 87 fL (79-100) Mean Corpuscular Hemoglobin 29 pg (25-35) Mean Corpuscular Hemoglobin Concent 34 g/dL (31-37) Red Cell Distribution Width 14.4 % (11.5-14.5) Platelet Count 246 x10^3/uL (140-400) Neutrophils (%) (Auto) 71 % (31-73) Lymphocytes (%) (Auto) 20 % (24-48) Monocytes (%) (Auto) 5 % (0-9) Eosinophils (%) (Auto) 3 % (0-3) Basophils (%) (Auto) 1 % (0-3) Neutrophils # (Auto) 5.6 x10^3uL (1.8-7.7) Lymphocytes # (Auto) 1.6 x10^3/uL (1.0-4.8) Monocytes # (Auto) 0.4 x10^3/uL (0.0-1.1) Eosinophils # (Auto) 0.2 x10^3/uL (0.0-0.7) Basophils # (Auto) 0.1 x10^3/uL (0.0-0.2) D-Dimer (Yaritza) 0.45 mg/L (0.00-0.50) Sodium Level 140 mmol/L (136-145) 140 mmol/L (136-145) Potassium Level 3.7 mmol/L (3.5-5.1) 4.2 mmol/L (3.5-5.1) Chloride Level 103 mmol/L (98-107) 103 mmol/L (98-107) Carbon Dioxide Level 27 mmol/L (21-32) 29 mmol/L (21-32) Anion Gap 10 (6-14) 8 (6-14) Blood Urea Nitrogen 11 mg/dL (8-26) 16 mg/dL (8-26) Creatinine 0.9 mg/dL (0.7-1.3) 1.1 mg/dL (0.7-1.3) Estimated GFR (Cockcroft-Gault) 90.8 72.1 BUN/Creatinine Ratio 12 (6-20) Glucose Level 196 mg/dL (70-99) 155 mg/dL (70-99) Calcium Level 9.0 mg/dL (8.5-10.1) 8.7 mg/dL (8.5-10.1) Total Bilirubin 0.3 mg/dL (0.2-1.0) Aspartate Amino Transf (AST/SGOT) 12 U/L (15-37) Alanine Aminotransferase (ALT/SGPT) 25 U/L (16-63) Alkaline Phosphatase 64 U/L (46-116) Creatine Kinase 59 U/L (39-308) Troponin I Quantitative 0.025 ng/mL (0-0.055) 0.027 ng/mL (0-0.055) 0.019 ng/mL (0-0.055) VR-Uhm-M-Type Natriuretic Peptide 39 pg/mL (0-124) Total Protein 7.4 g/dL (6.4-8.2) Albumin 3.3 g/dL (3.4-5.0) Albumin/Globulin Ratio 0.8 (1.0-1.7) Glucose (Fingerstick) 162 mg/dL (70-99) Hemoglobin A1c 6.7 % (4.8-5.6) Test 06/02/20 08:02 06/02/20 16:37 06/02/20 19:52 06/03/20 05:41 Glucose (Fingerstick) 154 mg/dL (70-99) 117 mg/dL (70-99) 117 mg/dL (70-99) Sodium Level 139 mmol/L (136-145) Potassium Level 4.0 mmol/L (3.5-5.1) Chloride Level 101 mmol/L (98-107) Carbon Dioxide Level 34 mmol/L (21-32) Anion Gap 4 (6-14) Blood Urea Nitrogen 16 mg/dL (8-26) Creatinine 1.0 mg/dL (0.7-1.3) Estimated GFR (Cockcroft-Gault) 80.4 Glucose Level 144 mg/dL (70-99) Calcium Level 8.9 mg/dL (8.5-10.1) Test 06/03/20 07:36 Glucose (Fingerstick) 167 mg/dL (70-99) Physical Exams HEENT: Neck Supple W Full Motion Chest: Symmetric Lungs: Clear to Auscultation, Other (diminished bases) Heart: RRR Abdomen: Soft N/T Extremities: Other (1+ bilateral LE edema ) Neurology: alert, oriented, follow commands Assessment Assessment 1. Dyspnea; multifactorial with a/c CHF, COPD, morbid obestiy and probable GLENN 2. Acute on chronic likely diastolic heart failure 3. Hypertension 4. Morbid obesity, probable GLENN Recommendations Resume oral diuretics Encourage weight loss Outpatient echo to assess LV systolic function Needs outpatient sleep study when insurance is obtain Follow up in our office; contact information provided. HARINDER UMANA APRN Jun 03, 2020 08:37
[2020-06-03] MEDS: METOPROLOL SUCC 24HR ER 25 MG TAB.ER.24H. PO SCH (09:00)
[2020-06-03 10:24] VITALS: BP 144/68
[2020-06-03] MEDS ORDERED: METF-658 PO (12:30)
[2020-06-03] MEDS ORDERED: OXYC-325 PO (12:30)
--- NOTE | 2020-06-03 12:51 | DS ---
DATE OF DISCHARGE: HOSPITAL COURSE: The patient was admitted with worsening shortness of breath and swelling of his legs. He continued also complaining of pain in both legs and he was treated aggressively with IV diuretics and did very well. His shortness of breath has improved. His swelling of both lower extremities has resolved. Continued to have pain that is most likely neurogenic as the venous Doppler ultrasound negative for deep vein thrombosis. His dorsalis pedis and tibialis posterior are easily palpable on both sides, ruling out peripheral vascular disease as the cause of his pain. PHYSICAL EXAMINATION: GENERAL: When I examined him this afternoon, he looked well and was clearly in no apparent respiratory distress. No pallor, jaundice, cyanosis or thyromegaly. No jugular venous distention or limb edema. VITAL SIGNS: His heart rate was 69, blood pressure was 144/68, temperature 97.8, respiratory rate 20, and oxygen saturation was 90% on room air. HEAD, EYES, EARS, NOSE AND THROAT: Showed normocephalic, atraumatic. NECK: Supple. HEART: Showed normal first and second heart sounds. No gallop or murmur. CHEST: Clear to auscultation. No crepitation or rhonchi. ABDOMEN: Distended, soft, nontender. NEUROLOGIC: He was grossly intact. His intake was 2200, output was 3550. LABORATORY DATA: As of this morning, his serum sodium was 139, potassium 4, chloride 101, bicarbonate 34, anion gap of 4, BUN 16, creatinine 1, estimated GFR was 80 mL per minute. His glucose 144, calcium was 6.9. His hemoglobin A1c was 6.7%. His D-dimer was normal at 0.45. White cell count of 7900, hemoglobin 16, hematocrit 46, MCV 87, and platelet count 246,000. DISCHARGE MEDICATIONS: He was discharged home to continue on metformin extended release 500 mg twice a day, oxycodone/APAP 5/325 one tablet every 12 hours as needed, aspirin 81 mg once a day, furosemide 40 mg twice a day, metoprolol succinate 25 mg once a day, and potassium chloride 20 mEq twice a day. FINAL DISCHARGE DIAGNOSES: 1. [id number] diastolic congestive heart failure, hypertension, morbid obesity, and obstructive sleep apnea. 2. Chronic obstructive pulmonary disease. The patient was advised to quit smoking and obviously he will require outpatient sleep study. SHAHZAD MACEDO MD DR: Kenna JOB#: [id number] / [id number]
[2020-06-03] MEDS ORDERED: FUROSEMIDE 40 MG/4 ML VIAL IVP SCH ×2 (14:00)
[2020-06-03] MEDS ORDERED: FUROSEMIDE 40 MG TABLET PO SCH (21:00)
== END 2020-06-03 13:00 | disposition home or self-care (01) | DRG 292 ==
LOC: ER 13:59 → 1 SOUTH 16:29 → ER 17:11
PROVIDERS: ADMIT Hospitalist; ATTEND Hospitalist
DX: I11.0 Hypertensive heart disease with heart failure (principal); Z68.43 Body mass index [BMI] 50.0-59.9, adult; E66.01 Morbid (severe) obesity due to excess calories; I50.33 Acute on chronic diastolic (congestive) heart failure; E78.5 Hyperlipidemia, unspecified; F17.210 Nicotine dependence, cigarettes, uncomplicated; G47.33 Obstructive sleep apnea (adult) (pediatric); K59.09 Other constipation; J44.9 Chronic obstructive pulmonary disease, unspecified; M15.9 Polyosteoarthritis, unspecified; Z80.7 Family history of other malignant neoplasms of lymphoid, hematopoietic and related tissues; Z82.49 Family history of ischemic heart disease and other diseases of the circulatory system
CPT/HCPCS: 36415; 71045; 80048; 80053; 82550; 82947; 83036; 83880; 84484; 85025; 85379; 93005; 93970; 96374; 96375; 99285; 99406; J1650; J1940; J2270; J2405

== ENCOUNTER 2020-11-21 02:36 | Emergency (ER) | payer SELFPAY ==
[~2020-11-21] VITALS: Ht 205.7 cm; Wt 193.0 kg
[~2020-11-21 02:36] MED LIST changes: +METF-658 PO; +OXYC-325 PO
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
[2020-11-21 03:20] LABS: BASO # 0.1 x10^3/uL (0.0-0.2); BASO % 1 % (0-3); EOS # 0.2 x10^3/uL (0.0-0.7); EOS % 2 % (0-3); HEMATOCRIT 47.1 % (39.0-53.0); HEMOGLOBIN 15.8 g/dL (13.0-17.5); LYMPH # 2.2 x10^3/uL (1.0-4.8); LYMPH % 22 % (24-48); MEAN CORPUSCULAR HEMOGLOBIN 29 pg (25-35); MEAN CORPUSCULAR HGB CONC 34 g/dL (31-37); MEAN CORPUSCULAR VOLUME 87 fL (79-100); MONO # 0.9 x10^3/uL (0.0-1.1); MONO % 9 % (0-9); NEUT # 6.7 x10^3uL (1.8-7.7); NEUT % 67 % (31-73); PLATELET COUNT 261 x10^3/uL (140-400); RED BLOOD COUNT 5.45 x10^6/uL (4.30-5.70); RED CELL DISTRIBUTION WIDTH 15.5 % (11.5-14.5)
[2020-11-21] MEDS ORDERED: MORPHINE SULFATE 10 MG/ML SYRINGE. ONE (03:23)
[2020-11-21] MEDS ORDERED: IV RINGERS SOLUTION,LACTATED 1,000 ML IV SCH (03:30)
[2020-11-21] MEDS ORDERED: ASPIRIN CHEWABLE 81 MG TABLET. PO ONE (03:30)
--- NOTE | 2020-11-21 03:32 | RAD ---
EXAM: CHEST 1 VIEW History: Chest pain COMPARISON: 06/01/2020 TECHNIQUE: Single portable radiograph of the chest FINDINGS: Mild cardiomegaly. Mild patchy bibasilar lung airspace opacities likely atelectasis or inf iltrates. The costophrenic sulci are clear and well demarcated. IMPRESSION: Mild patchy bibasilar lung airspace opacities likely atelectasis or infiltrates. Electronically signed by: Xiang Gerard MD (11/21/2020 3:30 AM) [id number]
[2020-11-21 03:33] LABS: CALCIUM 9.2 mg/dL (8.5-10.1); CREATININE 1.9 mg/dL (0.7-1.3); GFR 38.4
[2020-11-21 03:51] LABS: ALBUMIN 4.1 g/dL (3.4-5.0); DIRECT BILIRUBIN 0.1 mg/dL (0.0-0.2); MAGNESIUM 2.1 mg/dL (1.8-2.4); TOTAL BILIRUBIN 0.6 mg/dL (0.2-1.0)
--- NOTE | 2020-11-21 03:52 | EKG ---
[address] [address] Test Date: 2020-11-21 Test Time: 03:37:24 Pat Name: MACARENA JOHNSON Department: Room: Gender: Annual Giving Officer: JULIA : 1975 Requested By: ANT CURRY Order Number: [id number] Reading MD: Measurements Intervals [place] Rate: 80 P: 30 HI: 178 QRS: -64 QRSD: 116 T: 57 QT: 390 QTc: 453 Interpretive Statements SINUS RHYTHM ABNORMAL LEFT AXIS DEVIATION R-S TRANSITION ZONE IN V LEADS DISPLACED TO THE LEFT LEFT ANTERIOR FASCICULAR BLOCK INCOMPLETE RIGHT BUNDLE BRANCH BLOCK ABNORMAL ECG RI6.02 Compared to ECG 11/21/2020 02:44:23 No significant changes
--- NOTE | 2020-11-21 03:52 | EKG ---
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
[2020-11-21] MEDS ORDERED: ENOXAPARIN ** NOTE DOSE ** SYRINGE SQ ONE (04:00)
[2020-11-21] MEDS ORDERED: FUROSEMIDE 40 MG/4 ML VIAL IVP ONE (04:00)
[2020-11-21] MEDS ORDERED: MORPHINE SULFATE 10 MG/ML SYRINGE. SQ ONE (04:00)
[2020-11-21] MEDS ORDERED: MORPHINE SULFATE 2 MG/ML DISP.SYRIN. IVP PRN (05:00)
[2020-11-21] MEDS ORDERED: ACETAMINOPHEN 325 MG TABLET PO PRN (05:00)
[2020-11-21] MEDS ORDERED: ONDANSETRON PF 4 MG/2 ML VIAL. IVP PRN (05:00)
[2020-11-21 05:12] VITALS: BP 138/80
[2020-11-21] MEDS ORDERED: ANTI-COAG MONITOR BY PHARMACY. MC PRN (05:15)
[2020-11-21] MEDS ORDERED: ASPIRIN CHEWABLE 81 MG TABLET. PO SCH (08:00)
[2020-11-21] MEDS ORDERED: IPRATRPIUM/ALBUTEROL 0.5/2.5MG 3 ML NEBU. NEB SCH (08:00)
[2020-11-21 12:15] LABS: THYROID STIM HORMONE (TSH) 5.228 uIU/mL (0.358-3.740)
[2020-11-21] MEDS ORDERED: ENOXAPARIN ** NOTE DOSE ** SYRINGE SQ SCH (18:00)
== END 2020-11-21 05:12 | disposition left against medical advice (07) ==
LOC: ER 02:36
DX: R07.89 Other chest pain (principal); N28.9 Disorder of kidney and ureter, unspecified; E11.9 Type 2 diabetes mellitus without complications; I87.8 Other specified disorders of veins; E66.01 Morbid (severe) obesity due to excess calories; G47.30 Sleep apnea, unspecified; I11.0 Hypertensive heart disease with heart failure; I50.9 Heart failure, unspecified; F17.210 Nicotine dependence, cigarettes, uncomplicated; Z68.42 Body mass index [BMI] 45.0-49.9, adult; Z88.0 Allergy status to penicillin
CPT/HCPCS: 36415; 71045; 80048; 80061; 80076; 82550; 83690; 83735; 83880; 84443; 84484; 85025; 85379; 85610; 85730; 93005; 96361; 96372; 96374; 99285; J1650; J1940; J2270; J7120

== ENCOUNTER 2020-12-19 21:09 | Inpatient (IN) | payer SELFPAY ==
[~2020-12-19] VITALS: Ht 200.7 cm; Wt 227.0 kg
--- NOTE | 2020-12-19 21:29 | PHYS DOC ---
Past History Past Medical History: Angina, Anxiety, CAD, CHF, Diabetes, Hypertension, Other Additional Past Medical Histor: PERIPHERAL EDEMA, MORBID OBESITY, GLENN, EDEMA Past Surgical History: No Surgical History Smoking: Greater than 1 pack/day Alcohol Use: None Drug Use: None General Adult EDM: Chief Complaint: CHEST PAIN HPI: HPI: 45-year-old male presents with chest pain shortness of breath. He has had 2 to 3 days of extra shortness of breath and feels like his legs are more swollen and his abdomen is more distended. He has a history of COPD and CHF. He has been taking his medications as prescribed. 1 of which is Lasix 40mg twice daily. Patient has had more frequent shortness of breath for the last few weeks. He does not use any breathing treatments. He is not vaccinated for COVID-19. He was tested for Covid 6 days ago and tested negative. He denies fever or chills. Review of Systems: Review of Systems: Constitutional: Denies fever or chills Eyes: Denies change in visual acuity HENT: Denies nasal congestion or sore throat Respiratory: shortness of breath Cardiovascular: Chest pain GI: Epigastric abdominal pain. Denies nausea, vomiting, bloody stools or diarrhea : Denies dysuria Musculoskeletal: Denies back pain or joint pain Integument: Denies rash Neurologic: Denies headache, focal weakness or sensory changes Endocrine: Denies polyuria or polydipsia Lymphatic: Denies swollen glands Psychiatric: Denies depression or anxiety Allergies: Allergies: Allergies Coded Allergies Type Severity Reaction Last Updated Verified Penicillins Allergy Intermediate 03/09/18 Yes Physical Exam: PE: Constitutional: Well developed, well nourished, morbidly obese, no acute distress, non-toxic appearance. [] HENT: Normocephalic, atraumatic, bilateral external ears normal, oropharynx moist, no oral exudates, nose normal. [] Eyes: PERRLA, EOMI, conjunctiva normal, no discharge. [] Neck: Normal range of motion, no tenderness, supple, no stridor. [] Cardiovascular: Heart rate regular rhythm, no murmur [] Lungs & Thorax: Bilateral breath sounds diminished with end expiratory wheezing at the right base [] Abdomen: Bowel sounds normal, firm but not hard, no tenderness, no masses, no pulsatile masses. [] Skin: Warm, dry, no erythema, no rash. [] Back: No tenderness, no CVA tenderness. [] Extremities: No tenderness, no cyanosis, no clubbing, ROM intact, no edema. [] Neurologic: Alert and oriented X 3, normal motor function, normal sensory function, no focal deficits noted. [] Psychologic: Affect normal, judgement normal, mood normal. [] EKG: EKG: [] Radiology/Procedures: Radiology/Procedures: [] Impressions: EXAM: Chest, single view. HISTORY: Shortness of breath. COMPARISON: 11/21/2020 FINDINGS: A frontal view of the chest is obtained. There is diffuse right lung and left lower lobe interstitial infiltrate. There is no consolidation, pleural effusion or pneumothorax. The heart is normal in size. IMPRESSION: Diffuse right lung and left lower lobe infiltrate. Electronically signed by: Faye Winter MD (12/19/2020 9:41 PM) [facility] DICTATED AND SIGNED BY: FAYE WINTER MD DATE: 12/19/202139 CC: PITA SARAH DO; PCP,NO ~MTH0 0 Heart Score: C/O Chest Pain: Yes HEART Score for Chest Pain: HEART Score for Chest Pain Response (Comments) Value History Slighlty/Non-Suspicious 0 Age >45 - < 65 1 Risk Factors 1 or 2 Risk Factors 1 Total 2 Risk Factors: Risk Factors: DM, Current or recent (<one month) smoker, HTN, HLP, family history of CAD, obesity. Risk Scores: Score 0 - 3: 2.5% MACE over next 6 weeks - Discharge Home Score 4 - 6: 20.3% MACE over next 6 weeks - Admit for Clinical Observation Score 7 - 10: 72.7% MACE over next 6 weeks - Early Invasive Strategies Course & Med Decision Making: Course & Med Decision Making Pertinent Labs and Imaging studies reviewed. (See chart for details) The patient's labs are unremarkable. His chest x-ray is significant for bilateral pneumonia. I have treated him with azithromycin and Rocephin. He is resting comfortably on 2 L of nasal cannula. He has had 2 troponins thus far both negative. His EKG is unremarkable. Even though the patient was tested negative for COVID-19 6 days ago, this is still likely the patient's diagnosis. His test is pending. The patient was initially admitted to [facility], but a do not have any beds and do not expect to have any for greater than 24 hours. I spoke with Dr. Vogel and he has accepted the patient for admission here. He will continue to be held in the ER until a bed is available. [] Dragon Disclaimer: Dragon Disclaimer: This electronic medical record was generated, in whole or in part, using a voice recognition dictation system. Departure Departure: Impression: Primary Impression: Bilateral pneumonia Additional Impressions: Suspected COVID-19 virus infection Chest pain Disposition: ADMITTED INPATIENT Admitting Physician: Jerardo Vogel Condition: STABLE Referrals: PCP,EDNA (PCP) PITA SARAH DO Dec 19, 2020 21:29
--- NOTE | 2020-12-19 21:43 | RAD ---
EXAM: Chest, single view. HISTORY: Shortness of breath. COMPARISON: 11/21/2020 FINDINGS: A frontal view of the chest is obtained. There is diffuse right lung and left lower lobe in terstitial infiltrate. There is no consolidation, pleural effusion or pneumothorax. The heart is norm al in size. IMPRESSION: Diffuse right lung and left lower lobe infiltrate. Electronically signed by: Faye Winter MD (12/19/2020 9:41 PM) [facility]
[2020-12-19] MEDS ORDERED: CONTRAST GIVEN. MC PRN (21:45)
[2020-12-19 21:50] LABS: BASO % 1 % (0-3); EOS # 0.3 x10^3/uL (0.0-0.7); EOS % 4 % (0-3); HEMATOCRIT 41.6 % (39.0-53.0); LYMPH # 1.5 x10^3/uL (1.0-4.8); LYMPH % 21 % (24-48); MEAN CORPUSCULAR HEMOGLOBIN 29 pg (25-35); MEAN CORPUSCULAR HGB CONC 34 g/dL (31-37); MEAN CORPUSCULAR VOLUME 88 fL (79-100); MONO # 0.6 x10^3/uL (0.0-1.1); MONO % 9 % (0-9); NEUT # 4.8 x10^3uL (1.8-7.7); NEUT % 66 % (31-73); PLATELET COUNT 229 x10^3/uL (140-400); RED BLOOD COUNT 4.76 x10^6/uL (4.30-5.70); RED CELL DISTRIBUTION WIDTH 14.8 % (11.5-14.5); WHITE BLOOD COUNT 7.3 x10^3/uL (4.0-11.0)
[2020-12-19 22:00] LABS: CALCIUM 8.6 mg/dL (8.5-10.1); GFR 80.4; POTASSIUM 3.9 mmol/L (3.5-5.1)
[2020-12-19] MEDS ORDERED: ASPIRIN CHEWABLE 81 MG TABLET. PO ONE (22:00)
[2020-12-19] MEDS ORDERED: IPRATRPIUM/ALBUTEROL 0.5/2.5MG 3 ML NEBU. NEB ONE (22:00)
[2020-12-19] MEDS ORDERED: MORPHINE SULFATE 4 MG/ML DISP.SYRIN. IV ONE (22:00)
[2020-12-19] MEDS ORDERED: IOHEXOL 300 MG/ML 75 ML VIAL. IV ONE (22:00)
[2020-12-19] MEDS ORDERED: AZITHROMYCIN 500 MG in IV NORMAL SALINE 250ML 250 ML IV ONE (22:00)
[2020-12-19] MEDS ORDERED: ONDANSETRON PF 4 MG/2 ML VIAL. IVP ONE (22:00)
[2020-12-19 22:06] LABS: ALBUMIN 3.3 g/dL (3.4-5.0); TOTAL BILIRUBIN 0.2 mg/dL (0.2-1.0); TOTAL PROTEIN 6.6 g/dL (6.4-8.2)
[2020-12-19 22:12] LABS: LIPASE 90 U/L (73-393)
[2020-12-19] MEDS ORDERED: IV NORMAL SALINE 250ML 250 ML ONE (22:18)
[2020-12-19] MEDS ORDERED: AZITHROMYCIN 500 MG VIAL. IV ONE (22:18)
[2020-12-19] MEDS ORDERED: IV NORMAL SALINE 50ML 50 ML ONE (22:18)
[2020-12-19] MEDS ORDERED: cefTRIAXone SODIUM 1 GM VIAL ONE (22:19)
[2020-12-20] MEDS ORDERED: MORPHINE SULFATE 4 MG/ML DISP.SYRIN. IV ONE ×2 (02:30→07:30)
--- NOTE | 2020-12-20 06:29 | EKG ---
[address] [address] Test Date: 2020-12-19 Test Time: 21:55:41 Pat Name: MACARENA JOHNSON Department: Room: Gender: M Train Gateman: : 1975 Requested By: PITA SARAH Order Number: [id number] Reading MD: Measurements Intervals [place] Rate: 80 P: 37 PA: 168 QRS: -61 QRSD: 118 T: 54 QT: 376 QTc: 437 Interpretive Statements SINUS RHYTHM ABNORMAL LEFT AXIS DEVIATION R-S TRANSITION ZONE IN V LEADS DISPLACED TO THE LEFT S1,S2,S3 PATTERN LEFT ANTERIOR FASCICULAR BLOCK INCOMPLETE RIGHT BUNDLE BRANCH BLOCK CONSIDER RIGHT VENTRICULAR HYPERTROPHY ABNORMAL ECG RI6.02 No previous ECG available for comparison
[2020-12-20] MEDS ORDERED: FUROSEMIDE 40 MG TABLET PO SCH ×2 (09:00→11:30)
[2020-12-20 09:34] VITALS: BP 169/75
[2020-12-20] MEDS ORDERED: POTA20TA4 PO (10:04)
[2020-12-20] MEDS ORDERED: FURO40TA4 PO (10:04)
[2020-12-20] MEDS ORDERED: METO50TA29 PO (10:04)
[2020-12-20] MEDS ORDERED: METF500T16 PO (10:04)
[2020-12-20] MEDS ORDERED: OXYC-325 PO (10:04)
[2020-12-20] MEDS ORDERED: oxyCODONE/APAP 5/325 1 TAB TABLET PO PRN (11:15)
[2020-12-20] MEDS ORDERED: POTASSIUM CHLORIDE 20 MEQ TABLET.ER. PO SCH ×2 (11:30→15:15)
[2020-12-20 11:31] VITALS: BP 193/77
[2020-12-20] MEDS: metFORMIN 500 MG TABLET PO SCH ×2 (11:31→17:13)
[2020-12-20] MEDS ORDERED: METOPROLOL SUCC 24HR ER 25 MG TAB.ER.24H. PO SCH (12:00)
[2020-12-20] MEDS ORDERED: ONDANSETRON PF 4 MG/2 ML VIAL. IVP PRN (15:15)
[2020-12-20] MEDS: POTASSIUM CHLORIDE 20 MEQ TABLET.ER. PO SCH ×2 (15:23→20:10)
[2020-12-20] MEDS: FUROSEMIDE 40 MG/4 ML VIAL IVP SCH (15:23)
[2020-12-20 15:33] VITALS: BP 166/83
--- NOTE | 2020-12-20 16:01 | HP ---
ADMIT DATE: 12/20/2020 HISTORY OF PRESENT ILLNESS: The patient is a 45-year-old male patient who presented to the Emergency Room with a complaint of chest pain, shortness of breath, has had 2-3 days of extra shortness of breath and feels like his legs are more swollen, and his abdomen is more distended. He has a history of COPD and congestive heart failure. Has been taking his medication as prescribed, which is Lasix 40 mg twice a day. Has had more frequent shortness of breath over the last few weeks. He does not use any breathing treatment. He is not vaccinated for COVID-19. He was tested for COVID 6 days ago and tested negative. He denied any fever or chills. He was extensively investigated in the Emergency Room including lab work and imaging studies. His lab work showed white cell count to be normal at 7.3. Chemistry was unremarkable. Has had first set of cardiac enzyme, was negative and was admitted as his chest x-ray showed diffuse right lung and left lower lobe infiltrate. He was admitted with community-acquired pneumonia. He was started on IV antibiotic in the form of ceftriaxone and Zithromax. We will continue with his Lasix, metoprolol as well as potassium and pain medication, and we will do 2 more sets of cardiac enzyme, consult the Cardiology team. He did have a stress test done about 4-5 years ago before his cholecystectomy and was negative according to him. PAST MEDICAL HISTORY: Significant for hypertension, chronic obstructive pulmonary disease, chronic diastolic congestive heart failure, chronic constipation, hyperlipidemia. He is also morbidly obese and probably has obstructive sleep apnea, generalized osteoarthritis as well as what seemed to be neurogenic claudication. PAST SURGICAL HISTORY: Significant for cholecystectomy and ganglion cyst removal from the medial aspect of his right ankle joint, complicated by infection. ALLERGIES: He was ALLERGIC TO PENICILLIN WHEN HE WAS YOUNG; however, he is taking amoxicillin without any difficulty. FAMILY HISTORY: Has 1 brother and 3 sisters, one of his sisters has pulmonary embolism. His mother at the age of 70 because of lymphoma, has had a history of pulmonary embolism. Father is still alive at the age of 67. He is known to have hypertension as well as hyperlipidemia. SOCIAL HISTORY: , has 1 son and 2 daughters. He smokes about a pack a day. He drinks alcohol very occasionally. He does not use any drugs. 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 MEDICATIONS: He is currently on metoprolol succinate 25 mg once a day, aspirin 81 mg once a day, potassium 40 mEq twice a day and furosemide 80 mg twice a day. REVIEW OF SYSTEMS: As per history of present illness. PHYSICAL EXAMINATION: GENERAL: On arrival to the Emergency Room, he looked well and was clearly in no apparent respiratory distress. No pallor, jaundice, cyanosis or thyromegaly. No jugular venous distention, but marked bilateral lower limb edema. VITAL SIGNS: His heart rate was 78, blood pressure was 163/81, temperature was 98.5, respiratory rate was 24 and oxygen saturation was 96%. HEAD, EYES, EARS, NOSE, AND THROAT: Normocephalic, atraumatic. NECK: Supple. HEART: Showed distant first and second heart sounds. No gallop, rub or murmur. CHEST: Shows central trachea. Equally reduced expansion, reduced air entry, vesicular breath sounds. I could not really appreciate any crepitation or rhonchi. ABDOMEN: Distended, soft, nontender. NEUROLOGIC: Grossly intact. His intake and output are incompletely recorded. LABORATORY DATA: His lab work on admission shows a white cell count 7300, hemoglobin 14, hematocrit 41, MCV 88 and platelet count 229,000 with normal manual differential. His chemistry showed a serum sodium 143, potassium 3.9, chloride 106, bicarbonate 35, anion gap of 2, BUN 15, creatinine 1. Estimated GFR was 80 mL per minute. His glucose 162, calcium was 8.6. Total bilirubin, AST, ALT, alkaline phosphatase were normal. Total protein was 6.6, albumin was 3.3. His coronavirus PCR was negative. His chest x-ray showed the patient has diffuse right and left lower lobe interstitial infiltrate. There is no consolidation, pleural effusion or pneumothorax. The heart is normal in size. ASSESSMENT: 1. Chest pain. The patient has 3 sets of cardiac enzymes that ruled out acute myocardial infarction, diffuse right lung and left lower lobe infiltrate, consistent probably with community-acquired pneumonia versus pulmonary edema. 2. Chronic diastolic congestive heart failure. 3. Chronic obstructive pulmonary disease. 4. Hypertension. 5. Morbid obesity and obstructive sleep apnea. My plan is to continue with IV ceftriaxone and Zithromax. Switch furosemide to be given IV twice a day. Continue with beta blockers. We will increase the potassium to 3 times a day and continue with metformin, and we will continue with pain management and repeat his labs tomorrow and hopefully discharge him home tomorrow afternoon. KARINA/NOEMÍ DR: Kenna TID: [id number]
[2020-12-20] MEDS: NICOTINE 21MG PATCH. TD SCH (16:21)
[2020-12-20] MEDS: MORPHINE SULFATE 4 MG/ML DISP.SYRIN. IV PRN ×2 (16:21→20:25)
[2020-12-20 19:05] VITALS: BP 179/83
[2020-12-20] MEDS: ENOXAPARIN ** NOTE DOSE ** SYRINGE SQ SCH (22:06)
[2020-12-20 22:46] VITALS: BP 178/78
[2020-12-21] MEDS: MORPHINE SULFATE 4 MG/ML DISP.SYRIN. IV PRN ×5 (00:37→19:20)
[2020-12-21 05:32] VITALS: BP 129/76
[2020-12-21 06:23] LABS: BASO % 0 % (0-3); EOS # 0.3 x10^3/uL (0.0-0.7); EOS % 5 % (0-3); HEMATOCRIT 42.7 % (39.0-53.0); HEMOGLOBIN 14.3 g/dL (13.0-17.5); LYMPH # 1.6 x10^3/uL (1.0-4.8); LYMPH % 23 % (24-48); MEAN CORPUSCULAR HEMOGLOBIN 29 pg (25-35); MEAN CORPUSCULAR HGB CONC 33 g/dL (31-37); MEAN CORPUSCULAR VOLUME 88 fL (79-100); MONO # 0.6 x10^3/uL (0.0-1.1); MONO % 8 % (0-9); NEUT # 4.4 x10^3uL (1.8-7.7); NEUT % 63 % (31-73); PLATELET COUNT 243 x10^3/uL (140-400); RED BLOOD COUNT 4.88 x10^6/uL (4.30-5.70); RED CELL DISTRIBUTION WIDTH 14.8 % (11.5-14.5)
[2020-12-21 06:34] LABS: CALCIUM 8.7 mg/dL (8.5-10.1); CREATININE 0.9 mg/dL (0.7-1.3); GFR 90.8; POTASSIUM 3.9 mmol/L (3.5-5.1)
[2020-12-21] MEDS: FUROSEMIDE 40 MG/4 ML VIAL IVP SCH ×2 (08:08→14:00)
[2020-12-21] MEDS: ENOXAPARIN ** NOTE DOSE ** SYRINGE SQ SCH ×2 (08:08→21:00)
[2020-12-21] MEDS: metFORMIN 500 MG TABLET PO SCH ×2 (08:08→16:40)
[2020-12-21] MEDS: AZITHROMYCIN 250 MG TABLET. PO SCH (08:09)
[2020-12-21] MEDS: POTASSIUM CHLORIDE 20 MEQ TABLET.ER. PO SCH ×2 (08:09→20:58)
[2020-12-21] MEDS: NICOTINE 21MG PATCH. TD SCH (08:09)
--- NOTE | 2020-12-21 08:48 | PDOC2 ---
CARDIAC CONSULT DATE OF CONSULT DOS: DATE: 12/21/20 TIME: 08:36 REASON FOR CONSULT Reason for Consult Sinus bradycardia REFERRING PHYSICIAN Referring Physician Dr. Vogel SOURCE Source: Chart review, Patient HPI History of Present Illness This is a 45 yo male who presented secondary to worsening shortness of breath. Patient reports recent traumatic event as older son killed 17 yo son in their living room. Has struggled with depression and anxiety since. Has been unable to stay in the home. Has not taken his medications routinely including his Lasix therapy. Has not had in about 3 weeks. Has notice some fluid retention in his lower legs and abdomen. Also reports some pain in his left chest. Radiated to his left side. Seems to be worse with certain movements and feels like muscle is sore in his left side. Patient has difficulty standing up from hospital bed and reports pain worsened when he exerts himself by straining to push up from the bed. No associated dizziness or diaphoresis. Has been short of breath recently. Has also been more fatigued as he has not been sleeping well. PAST MEDICAL HISTORY Cardiovascular: CHF, HTN, hyperipidemia Pulmonary: COPD PAST SURGICAL HISTORY Past Surgical History: Cholecystectomy FAMILY HISTORY Family History: Hypertension SOCIAL HISTORY Smoke: 1 pack per day ALCOHOL: none Drugs: None Lives: with Family CURRENT MEDICATIONS Current Medications Current Medications Albuterol/ Ipratropium (Duoneb) 3 ml 1X ONCE NEB Last administered on 12/19/20at 22:00; Start 12/19/20 at 22:00; Stop 12/19/20 at 22:01; Status DC Iohexol (Omnipaque 300 Mg/ml) 75 ml 1X ONCE IV ; Start 12/19/20 at 22:00; Stop 12/19/20 at 22:01; Status DC Info (Do NOT chart on this entry -- for MONITORING) 1 each PRN DAILY PRN MC SEE COMMENTS; Start 12/19/20 at 21:45; Stop 12/20/20 at 11:09; Status DC Aspirin (Aspirin Chewable) 324 mg 1X ONCE PO Last administered on 12/19/20at 22:27; Start 12/19/20 at 22:00; Stop 12/19/20 at 22:01; Status DC Ondansetron HCl (Zofran) 4 mg 1X ONCE IVP Last administered on 12/19/20at 22:26; Start 12/19/20 at 22:00; Stop 12/19/20 at 22:01; Status DC Morphine Sulfate (Morphine 4mg Syringe) 4 mg 1X ONCE IV Last administered on 12/19/20at 22:27; Start 12/19/20 at 22:00; Stop 12/19/20 at 22:01; Status DC Azithromycin 500 mg/Sodium Chloride 250 ml @ 250 mls/hr 1X ONCE IV Last administered on 12/19/20at 23:56; Start 12/19/20 at 22:00; Stop 12/19/20 at 22:59; Status DC Ceftriaxone Sodium 1 gm/ Sodium Chloride 50 ml @ 100 mls/hr 1X ONCE IV Last administered on 12/19/20at 22:28; Start 12/19/20 at 22:00; Stop 12/19/20 at 22:29; Status DC Sodium Chloride 250 ml @ As Directed STK-MED ONCE .ROUTE ; Start 12/19/20 at 22:18; Stop 12/19/20 at 22:18; Status DC Sodium Chloride 50 ml @ As Directed STK-MED ONCE .ROUTE ; Start 12/19/20 at 22:18; Stop 12/19/20 at 22:18; Status DC Azithromycin (Zithromax) 500 mg STK-MED ONCE IV ; Start 12/19/20 at 22:18; Stop 12/19/20 at 22:18; Status DC Ceftriaxone Sodium (Rocephin) 1 gm STK-MED ONCE .ROUTE ; Start 12/19/20 at 22:19; Stop 12/19/20 at 22:19; Status DC Morphine Sulfate (Morphine 4mg Syringe) 4 mg 1X ONCE IV Last administered on 12/20/20at 02:20; Start 12/20/20 at 02:30; Stop 12/20/20 at 02:31; Status DC Morphine Sulfate (Morphine 4mg Syringe) 4 mg 1X ONCE IV Last administered on 12/20/20at 07:25; Start 12/20/20 at 07:30; Stop 12/20/20 at 07:31; Status DC Furosemide (Lasix) 40 mg BID94 PO ; Start 12/20/20 at 09:00; Stop 12/20/20 at 11:12; Status DC Metformin HCl (Glucophage) 500 mg BIDWMEALS PO Last administered on 12/21/20at 08:08; Start 12/20/20 at 11:30 Metoprolol Succinate (Toprol Xl) 25 mg DAILY PO Last administered on 12/20/20at 12:07; Start 12/20/20 at 12:00; Stop 12/20/20 at 15:45; Status DC Oxycodone/ Acetaminophen (Percocet 5/325) 1 tab PRN BID PRN PO PAIN Last administered on 12/20/20at 11:33; Start 12/20/20 at 11:15; Stop 12/20/20 at 15:10; Status DC Potassium Chloride (Klor-Con) 20 meq BID PO Last administered on 12/20/20at 11:32; Start 12/20/20 at 11:30; Stop 12/20/20 at 15:08; Status DC Furosemide (Lasix) 40 mg BID94 PO Last administered on 12/20/20at 11:31; Start 12/20/20 at 11:30; Stop 12/20/20 at 14:55; Status DC Ceftriaxone Sodium 1 gm/ Sodium Chloride 50 ml @ 100 mls/hr Q24H IV Last administered on 12/20/20at 20:10; Start 12/20/20 at 21:00 Azithromycin (Zithromax) 250 mg DAILY PO Last administered on 12/21/20at 08:09; Start 12/21/20 at 09:00 Furosemide (Lasix) 60 mg BID92 IVP Last administered on 12/21/20at 08:08; Start 12/20/20 at 15:00 Potassium Chloride (Klor-Con) 4 meq BID PO ; Start 12/20/20 at 15:15; Stop at 15:15; Status DC Morphine Sulfate (Morphine 4mg Syringe) 4 mg PRN Q4HRS PRN IV PAIN Last administered on 12/21/20at 06:36; Start 12/20/20 at 15:15 Ondansetron HCl (Zofran) 4 mg PRN Q4HRS PRN IVP NAUSEA/VOMITING; Start 12/20/20 at 15:15 Potassium Chloride (Klor-Con) 40 meq BID PO Last administered on 12/21/20at 08:09; Start 12/20/20 at 15:15 Nicotine (Nicoderm Cq 21mg Patch) 1 patch DAILY TD Last administered on 12/21/20at 08:09; Start 12/20/20 at 16:00 Enoxaparin Sodium (Lovenox 60mg Syringe) 60 mg Q12HR SQ Last administered on 12/21/20at 08:08; Start 12/20/20 at 21:30 Active Scripts Active Reported Metoprolol Succinate ( Xl ) (Metoprolol Succinate) 50 Mg Tab.er.24h 40 Mg PO DAILY Percocet 5-325 mg Tablet (Oxycodone HCl/Acetaminophen) 1 Each Tablet 1 Tab PO PRN BID PRN MDD 2 Tablet(s) 5 Days Klor-Con M20 (Potassium Chloride) 20 Meq Tab.er.prt 20 Meq PO BID Furosemide 40 Mg Tablet 1 Tab PO BID Metformin Hcl 500 Mg Tablet 1 Tab PO BID ALLERGIES Allergies: Coded Allergies: Penicillins (Verified Allergy, Intermediate, 03/09/18) ROS Review of Systems 14 point ROS conducted with pertinent positives noted above in HPI PHYSICAL EXAM General: Alert, Oriented X3, Cooperative, No acute distress HEENT: Atraumatic Lungs: Clear to auscultation, Other (diminished, left chest tenderness upon palpation ) Abdomen: Soft, Other (obese ) Extremities: Other (1+ bilateral LE edema ) Skin: No significant lesion Neuro: Normal speech, Sensation intact Psych/Mental Status: Mental status NL, Mood NL MUSCULOSKELETAL: Osteoarthritic changes both hands VITALS Vital Signs Vital Signs Date Time Temp Pulse Resp B/P (MAP) Pulse Ox O2 Delivery O2 Flow Rate FiO2 12/21/20 06:36 97 Room Air 12/21/20 05:32 97.8 88 20 129/76 (93) 12/20/20 02:20 2.0 LABS LABS Laboratory Tests Test 12/19/20 21:25 12/19/20 21:35 12/19/20 22:15 12/20/20 03:58 Lactic Acid Level 1.2 mmol/L (0.4-2.0) White Blood Count 7.3 x10^3/uL (4.0-11.0) Red Blood Count 4.76 x10^6/uL (4.30-5.70) Hemoglobin 14.0 g/dL (13.0-17.5) Hematocrit 41.6 % (39.0-53.0) Mean Corpuscular Volume 88 fL (79-100) Mean Corpuscular Hemoglobin 29 pg (25-35) Mean Corpuscular Hemoglobin Concent 34 g/dL (31-37) Red Cell Distribution Width 14.8 % (11.5-14.5) Platelet Count 229 x10^3/uL (140-400) Neutrophils (%) (Auto) 66 % (31-73) Lymphocytes (%) (Auto) 21 % (24-48) Monocytes (%) (Auto) 9 % (0-9) Eosinophils (%) (Auto) 4 % (0-3) Basophils (%) (Auto) 1 % (0-3) Neutrophils # (Auto) 4.8 x10^3uL (1.8-7.7) Lymphocytes # (Auto) 1.5 x10^3/uL (1.0-4.8) Monocytes # (Auto) 0.6 x10^3/uL (0.0-1.1) Eosinophils # (Auto) 0.3 x10^3/uL (0.0-0.7) Basophils # (Auto) 0.0 x10^3/uL (0.0-0.2) Sodium Level 143 mmol/L (136-145) Potassium Level 3.9 mmol/L (3.5-5.1) Chloride Level 106 mmol/L (98-107) Carbon Dioxide Level 35 mmol/L (21-32) Anion Gap 2 (6-14) Blood Urea Nitrogen 15 mg/dL (8-26) Creatinine 1.0 mg/dL (0.7-1.3) Estimated GFR (Cockcroft-Gault) 80.4 BUN/Creatinine Ratio 15 (6-20) Glucose Level 162 mg/dL (70-99) Calcium Level 8.6 mg/dL (8.5-10.1) Total Bilirubin 0.2 mg/dL (0.2-1.0) Aspartate Amino Transf (AST/SGOT) 18 U/L (15-37) Alanine Aminotransferase (ALT/SGPT) 38 U/L (16-63) Alkaline Phosphatase 83 U/L (46-116) Troponin I Quantitative < 0.017 ng/mL (0-0.055) < 0.017 ng/mL (0-0.055) WZ-Myp-I-Type Natriuretic Peptide 79 pg/mL (0-124) Total Protein 6.6 g/dL (6.4-8.2) Albumin 3.3 g/dL (3.4-5.0) Albumin/Globulin Ratio 1.0 (1.0-1.7) Lipase 90 U/L (73-393) Coronavirus (COVID-19)(PCR) Negative (NEGATIVE) Test 12/20/20 11:02 12/21/20 05:38 Troponin I Quantitative < 0.017 ng/mL (0-0.055) White Blood Count 7.0 x10^3/uL (4.0-11.0) Red Blood Count 4.88 x10^6/uL (4.30-5.70) Hemoglobin 14.3 g/dL (13.0-17.5) Hematocrit 42.7 % (39.0-53.0) Mean Corpuscular Volume 88 fL (79-100) Mean Corpuscular Hemoglobin 29 pg (25-35) Mean Corpuscular Hemoglobin Concent 33 g/dL (31-37) Red Cell Distribution Width 14.8 % (11.5-14.5) Platelet Count 243 x10^3/uL (140-400) Neutrophils (%) (Auto) 63 % (31-73) Lymphocytes (%) (Auto) 23 % (24-48) Monocytes (%) (Auto) 8 % (0-9) Eosinophils (%) (Auto) 5 % (0-3) Basophils (%) (Auto) 0 % (0-3) Neutrophils # (Auto) 4.4 x10^3uL (1.8-7.7) Lymphocytes # (Auto) 1.6 x10^3/uL (1.0-4.8) Monocytes # (Auto) 0.6 x10^3/uL (0.0-1.1) Eosinophils # (Auto) 0.3 x10^3/uL (0.0-0.7) Basophils # (Auto) 0.0 x10^3/uL (0.0-0.2) Sodium Level 141 mmol/L (136-145) Potassium Level 3.9 mmol/L (3.5-5.1) Chloride Level 100 mmol/L (98-107) Carbon Dioxide Level 36 mmol/L (21-32) Anion Gap 5 (6-14) Blood Urea Nitrogen 15 mg/dL (8-26) Creatinine 0.9 mg/dL (0.7-1.3) Estimated GFR (Cockcroft-Gault) 90.8 Glucose Level 144 mg/dL (70-99) Calcium Level 8.7 mg/dL (8.5-10.1) ECHOCARDIOGRAM Echocardiogram <Conclusion> This was a technically difficult study with very poor parasternal views. The apical views were reasonable Severe concentric left ventricle hypertrophy. Normal left systolic function with ejection fraction of 65% There is a mild outflow tract gradient without systolic anterior motion of the mitral leaflet. Peak gradient was 7.6 mmHg The IVC is dilated. The PA pressure was estimated at 29 mmHg. The right atrium is mildly dilated. DATE: 07/15/15 1511 ASSESSMENT/PLAN Assessment/Plan 1. Dyspnea multifactorial with AE COPD, obesity hypoventilation syndrome, and possible PNA. COVID PCR negative 2. Chest pain, mixed features. AMI ruled out. EKG without significant acute changes as compared to previous 06/01/20. 3. Acute on chronic diastolic CHF, fluid retention; has not been compliant with diuretic therapy in at least 3 weeks. improved s/p IV diuresis 4. Bacteremia; BC with GPC 4/4 bottles 5. Accelerated hypertension; now controlled 6. Hyperlipidemia 7. Morbid obesity, probable GLENN 8. Recent traumatic event with loss of son 9. Tobaccoism Recommendations Continue Lasix therapy Add ASA, statin No BB with mild bradycardia Echo to assess LV systolic function Ongoing antibiotic therapy, lung optimization Risk factor modification Weight loss, smoking cessation Consider outpatient ischemic evaluation Supportive care HARINDER UMANA APRN Dec 21, 2020 08:48
[2020-12-21] MEDS: VANCOMYCIN 2 GM in IV NORMAL SALINE 500ML 500 ML IV SCH ×2 (09:54→21:35)
[2020-12-21] MEDS: LACTOBACILLUS RHAMNOSUS GG 1 CAPSULE. PO SCH ×2 (10:37→20:58)
[2020-12-21 10:38] VITALS: BP 129/84
[2020-12-21 15:11] VITALS: BP 139/67
[2020-12-21] MEDS: VANCOMYCIN PER PHARMACY MC PRN ×2 (15:51→15:55)
[2020-12-21] MEDS: ASPIRIN ENTERIC COATED 81 MG TABLET.DR. PO SCH (16:40)
--- NOTE | 2020-12-21 17:31 | CARD ---
MR#: [id number] Date of Study: 12/21/2020 Ordering Physician: HARINDER UMANA, Referring Physician: HARINDER UMANA, Tech: Troy Richter [facility] APPROVED REPORT EXAM: Two-dimensional and M-mode echocardiogram with Doppler and color Doppler. Other Information Quality : LimitedHR: 64bpm Rhythm : NSRTechnically limited study due to body habitus and smoking. INDICATION Chest Pain RISK FACTORS Obesity Smoking 2D DIMENSIONS Left Atrium(2D)5.8 (1.6-4.0cm)IVSd1.5 (0.7-1.1cm) Aortic Root(2D)4.3 (2.0-3.7cm)LVDd5.9 (3.9-5.9cm) LVOT Diameter2.8 (1.8-2.4cm)PWd1.5 (0.7-1.1cm) LVDs3.9 (2.5-4.0cm)FS (%) 34.0 % SV105.6 mlLVEF(%)62.1 (>50%) Aortic Valve AoV Peak Leif.162.9cm/sAoV VTI36.9cm AO Peak GR.10.6mmHgLVOT Peak Leif.136.2cm/s LVOT VTI 30.79cmAO Mean GR.6mmHg ANDRE (VMAX)5.12zr3VJR (VTI)5.22cm2 Mitral Valve MV E Znikatjy949.9cm/sMV E Peak Gr.6mmHg MV DECEL [id number] A Nhpogvxr37.6cm/s MV E Mean Gr.2mmHgE/A Ratio1.4 Pulmonary Valve PV Peak Rrdyojzk118.1cm/sPV Peak Grad.4mmHg Tricuspid Valve TR P. Dgynctsk491pk/sTR Peak Gr.32mmHg Pulmonary Vein S1 Zhlkydzk55.3cm/sD2 Hgedwxlp65.9cm/s LEFT VENTRICLE The Left Ventricle is mildly dilated. There is moderate concentric left ventricular hypertrophy. The left ventricular systolic function is normal and the ejection fraction is within normal range. EF 55% There is normal LV segmental wall motion. Tissue Doppler imaging reveals moderate left ventricular d iastolic dysfunction. RIGHT VENTRICLE The right ventricle is mildly dilated. There is normal right ventricular wall thickness. The right ve ntricular systolic function is normal. ATRIA The left atrium is moderately dilated. The right atrium is moderately dilated. The interatrial septum is intact with no evidence for an atrial septal defect or patent foramen ovale as noted on 2-D or Do ppler imaging. AORTIC VALVE Aortic valve not well visualized. Doppler and Color Flow revealed no significant aortic regurgitation . There is no significant aortic valvular stenosis. There is no obvious aortic valve vegetations. MITRAL VALVE Mitral annular calcification is moderate. There is no evidence of mitral valve prolapse. There is no mitral valve stenosis. Doppler and Color Flow revealed no mitral valve regurgitation noted. TRICUSPID VALVE Not well visualized. Doppler and Color Flow revealed trace tricuspid regurgitation. The pulmonary art ricardo systolic pressure is estimated at 40-50 mmHg. There is no tricuspid valve stenosis. PULMONIC VALVE PV not well visualized. Doppler and Color Flow revealed no pulmonic valvular regurgitation. There is no pulmonic valvular stenosis. GREAT VESSELS The aortic root is normal in size. Ascending aorta not well seen. Pulmonary artery not well seen. IVC is dilated with blunted inspiratory response. PERICARDIAL EFFUSION There is no pleural effusion. There is no evidence of significant pericardial effusion. Critical Notification Critical Value: No <Conclusion> The left ventricular systolic function is normal and the ejection fraction is within normal range. EF 55% There is normal LV segmental wall motion. Doppler and Color Flow revealed trace tricuspid regurgitation. The pulmonary artery systolic pressure is estimated at 40-50 mmHg. Technically very difficult study. Signed by : Munir Lucas, Electronically Approved : 12/21/2020 17:30:39
[2020-12-21 19:39] VITALS: BP 117/67
[2020-12-21] MEDS: ATORVASTATIN CALCIUM 20 MG TABLET PO SCH (20:59)
--- NOTE | 2020-12-21 23:19 | PN ---
SUBJECTIVE: The patient is resting slightly propped up in bed, in no apparent distress. He continued to complain of pain in his neck and his legs. He continued to have shortness of breath that seemed to be slightly better today. He had multiple episodes of bradycardia and we held his metoprolol yesterday. OBJECTIVE: GENERAL: When I examined him today, he looked well and was clearly in no apparent respiratory distress. No pallor, jaundice, cyanosis or thyromegaly. No jugular venous distention. No limb edema. VITAL SIGNS: His heart rate was 61, blood pressure was 129/84, temperature was 97.4, respiratory rate 20, and oxygen saturation was 91% on room air. HEAD, EYES, EARS, NOSE, AND THROAT: Normocephalic, atraumatic. NECK: Supple. HEART: Showed normal first and second heart sounds, no gallop, rub or murmur. CHEST: Shows central trachea, equally reduced expansion, reduced air entry, vesicular breath sounds. I could not appreciate any crepitation or rhonchi. ABDOMEN: Distended, soft, nontender. NEUROLOGIC: He was grossly intact. His intake and output were incompletely recorded. LABORATORY DATA: His lab work this morning showed a serum sodium 141, potassium 3.9, chloride 100, bicarbonate , anion gap of 5, BUN 15, and creatinine 0.9. Estimated GFR was 90 mL per minute. Glucose , calcium was 8.7, beta-natriuretic peptide was only 79, and lipase was 90. He had 3 sets of cardiac enzymes that ruled out myocardial infarction. His blood culture has grown gram-positive cocci in clusters in 4 out of 4 bottles, identification and sensitivities still pending at the time of this dictation. ASSESSMENT: 1. Worsening shortness of breath, likely due to community-acquired pneumonia. 2. Chronic diastolic congestive heart failure. 3. Chronic obstructive pulmonary disease exacerbation. 4. Morbid obesity and obstructive sleep apnea. 5. Atypical chest pain, acute myocardial infarction ruled out. The patient has gram-positive cocci in 4 out of 4 bottles. 6. Sinus bradycardia for which we discontinued his metoprolol. 7. Accelerated hypertension, much better controlled. 8. Hyperlipidemia. PLAN: To continue with IV antibiotic. In fact, I have added vancomycin as per pharmacy recommendation. Continue with IV ceftriaxone as well as azithromycin. Continue with Lovenox for DVT prophylaxis. Continue with IV Lasix. We will monitor his lab. Echocardiogram was ordered, but still pending at the time of this dictation. TOM DR: Kenna TID: [id number]
[2020-12-21 23:37] VITALS: BP 153/78
[2020-12-22] VITALS (7 sets, daily range): BP systolic 153–198; BP diastolic 65–118
[2020-12-22] MEDS: MORPHINE SULFATE 4 MG/ML DISP.SYRIN. IV PRN ×5 (00:11→20:50)
[2020-12-22 06:22] LABS: CALCIUM 8.4 mg/dL (8.5-10.1); CREATININE 0.9 mg/dL (0.7-1.3); GFR 90.8; POTASSIUM 4.4 mmol/L (3.5-5.1)
[2020-12-22] MEDS: AZITHROMYCIN 250 MG TABLET. PO SCH (08:07)
[2020-12-22] MEDS: POTASSIUM CHLORIDE 20 MEQ TABLET.ER. PO SCH ×2 (08:07→20:49)
[2020-12-22] MEDS: NICOTINE 21MG PATCH. TD SCH (08:07)
[2020-12-22] MEDS: ENOXAPARIN ** NOTE DOSE ** SYRINGE SQ SCH ×2 (08:08→20:50)
[2020-12-22] MEDS: ASPIRIN ENTERIC COATED 81 MG TABLET.DR. PO SCH (08:08)
[2020-12-22] MEDS: metFORMIN 500 MG TABLET PO SCH ×2 (08:08→17:20)
[2020-12-22] MEDS: LACTOBACILLUS RHAMNOSUS GG 1 CAPSULE. PO SCH ×2 (08:08→20:49)
[2020-12-22] MEDS: FUROSEMIDE 40 MG/4 ML VIAL IVP SCH ×2 (08:09→14:50)
--- NOTE | 2020-12-22 08:32 | PDOC ---
CARDIO Progress Notes Date & Time Date of Service DATE: 12/22/20 TIME: 08:30 Time of Evaluation 08:30 Subjective Notes no chest pain, palpitations, breathing improved. Vitals Vitals Vital Signs Date Time Temp Pulse Resp B/P (MAP) Pulse Ox O2 Delivery O2 Flow Rate FiO2 12/22/20 06:18 97.4 70 20 175/65 (101) 92 Room Air 12/22/20 04:41 2.0 Weight Weight [ ] Input and Output I.O. Intake and Output 12/22/20 07:00 Intake Total 2390 ml Balance 2390 ml Intake Oral 1840 ml IV Total 550 ml # Voids 1 Laboratory Labs Laboratory Tests Test 12/20/20 11:02 12/21/20 05:38 12/22/20 05:38 Troponin I Quantitative < 0.017 ng/mL (0-0.055) White Blood Count 7.0 x10^3/uL (4.0-11.0) Red Blood Count 4.88 x10^6/uL (4.30-5.70) Hemoglobin 14.3 g/dL (13.0-17.5) Hematocrit 42.7 % (39.0-53.0) Mean Corpuscular Volume 88 fL (79-100) Mean Corpuscular Hemoglobin 29 pg (25-35) Mean Corpuscular Hemoglobin Concent 33 g/dL (31-37) Red Cell Distribution Width 14.8 % (11.5-14.5) Platelet Count 243 x10^3/uL (140-400) Neutrophils (%) (Auto) 63 % (31-73) Lymphocytes (%) (Auto) 23 % (24-48) Monocytes (%) (Auto) 8 % (0-9) Eosinophils (%) (Auto) 5 % (0-3) Basophils (%) (Auto) 0 % (0-3) Neutrophils # (Auto) 4.4 x10^3uL (1.8-7.7) Lymphocytes # (Auto) 1.6 x10^3/uL (1.0-4.8) Monocytes # (Auto) 0.6 x10^3/uL (0.0-1.1) Eosinophils # (Auto) 0.3 x10^3/uL (0.0-0.7) Basophils # (Auto) 0.0 x10^3/uL (0.0-0.2) Sodium Level 141 mmol/L (136-145) 142 mmol/L (136-145) Potassium Level 3.9 mmol/L (3.5-5.1) 4.4 mmol/L (3.5-5.1) Chloride Level 100 mmol/L (98-107) 102 mmol/L (98-107) Carbon Dioxide Level 36 mmol/L (21-32) 35 mmol/L (21-32) Anion Gap 5 (6-14) 5 (6-14) Blood Urea Nitrogen 15 mg/dL (8-26) 15 mg/dL (8-26) Creatinine 0.9 mg/dL (0.7-1.3) 0.9 mg/dL (0.7-1.3) Estimated GFR (Cockcroft-Gault) 90.8 90.8 Glucose Level 144 mg/dL (70-99) 144 mg/dL (70-99) Calcium Level 8.7 mg/dL (8.5-10.1) 8.4 mg/dL (8.5-10.1) Triglycerides Level 130 mg/dL (0-150) Cholesterol Level 236 mg/dL (0-200) LDL Cholesterol, Calculated 173 mg/dL (0-100) VLDL Cholesterol, Calculated 26 mg/dL (0-40) Non-HDL Cholesterol Calculated 199 mg/dL (0-129) HDL Cholesterol 37 mg/dL (40-60) Cholesterol/HDL Ratio 6.0 Microbiology Micro Microbiology 12/19/20 Blood Culture - Final, Complete Physical Exams HEENT: Neck Supple W Full Motion Chest: Symmetric Lungs: Other (diminished bases) Heart: RRR Abdomen: Other (obese) Extremities: Other (1+ bilateral LE edema ) Neurology: alert, oriented, follow commands Assessment Assessment 1. Dyspnea multifactorial with AE COPD, obesity hypoventilation syndrome, and possible PNA. COVID PCR negative 2. Chest pain, mixed features. AMI ruled out. EKG without significant acute changes as compared to previous 06/01/20. Echo with preserved LV systolic function 3. Acute on chronic diastolic CHF, fluid retention; has not been compliant with diuretic therapy in at least 3 weeks. improved s/p IV diuresis 4. Bacteremia; BC with GPC 4/4 bottles 5. Accelerated hypertension; now controlled 6. Sinus bradycardia; lowest 38 overnight. No significant pauses. Mean near 70 while awake. 7. Hyperlipidemia 8. Morbid obesity, probable GLENN. will need outpatient sleep study 9. Recent traumatic event with loss of son 10. Tobaccoism Recommendations Lasix therapy; convert to oral ASA, statin therapy No BB with bradycardia Risk factor modification Weight loss, smoking cessation discussed/encouraged Consider outpatient ischemic evaluation Antibiotic therapy as per IM Supportive care HARINDER UMANA APRN Dec 22, 2020 08:32
[2020-12-22] MEDS: VANCOMYCIN 2 GM in IV NORMAL SALINE 500ML 500 ML IV SCH ×2 (10:17→22:42)
[2020-12-22] MEDS ORDERED: MAGNESIUM CITRATE 296 ML SOLUTION. PO ONE (20:15)
[2020-12-22] MEDS: ATORVASTATIN CALCIUM 20 MG TABLET PO SCH (20:49)
[2020-12-22 21:01] LABS: VANC TR 8.3 mcg/mL (10.0-20.0)
[2020-12-22 21:06] LABS: HEMATOCRIT 42.5 % (39.0-53.0); RED BLOOD COUNT 4.86 x10^6/uL (4.30-5.70); RED CELL DISTRIBUTION WIDTH 14.6 % (11.5-14.5); WHITE BLOOD COUNT 6.6 x10^3/uL (4.0-11.0)
--- NOTE | 2020-12-22 22:25 | PN ---
DATE: 12/22/2020 ATTENDING PHYSICIAN: Jerardo Vogel MD SUBJECTIVE: Less dyspneic. No further chest pressure. He still has bradycardic heart rate ranging between 40 and 60; when I saw him, it was up to 66 per minute, regular. He does have a sinus bradycardia. Beta blockers were stopped yesterday. OBJECTIVE FINDINGS: VITAL SIGNS: Blood pressure today is 170/60, pulse is 70 and regular. When I saw him; temperature 97.4, oxygen saturation 93% on room air. HEENT: Head is without trauma. Pupils are reactive. Sclerae nonicteric. Oropharynx is clear. NECK: Supple, no bruits. LUNGS: Good breath sounds. CARDIOVASCULAR: Showed distant heart tones. No gallops. ABDOMEN: Soft and profoundly protuberant. No guarding or rebound tenderness. EXTREMITIES: Showed 2+ pedal edema. He has stasis dermatitis. The right ankle and leg are under wraps. LABORATORY DATA: Blood cultures were indeed positive for gram-positive cocci. I suspect Staphylococcus species were waiting for the ID and sensitivity. ASSESSMENT: 1. This 45-year-old gentleman had atypical chest pain, coronary ischemia ruled out. 2. Morbid obesity. 3. Probable sleep apnea. 4. Stasis dermatitis. 5. Bacteremia without sepsis syndrome. 6. Hypertension. PLAN: 1. Continue broad-spectrum antibiotics as ordered. 2. Await results of blood work and a culture and sensitivity. 3. ____ per Cardiology. 4. He will need a sleep study as an outpatient whether or not this is feasible remains to be seen. 5. Tentative discharge planning. He wants to go home as soon as he can. MARCIANO DR: MARCIANO/berenice TID: [id number]
[2020-12-23] MEDS: MORPHINE SULFATE 4 MG/ML DISP.SYRIN. IV PRN (05:27)
[2020-12-23 05:31] VITALS: BP 167/64
[2020-12-23] MEDS: NICOTINE 21MG PATCH. TD SCH (08:04)
[2020-12-23] MEDS: LACTOBACILLUS RHAMNOSUS GG 1 CAPSULE. PO SCH (08:04)
[2020-12-23] MEDS: ASPIRIN ENTERIC COATED 81 MG TABLET.DR. PO SCH (08:04)
[2020-12-23] MEDS: metFORMIN 500 MG TABLET PO SCH (08:04)
[2020-12-23] MEDS: AZITHROMYCIN 250 MG TABLET. PO SCH (08:04)
[2020-12-23] MEDS: POTASSIUM CHLORIDE 20 MEQ TABLET.ER. PO SCH (08:05)
[2020-12-23] MEDS: FUROSEMIDE 40 MG/4 ML VIAL IVP SCH (08:05)
[2020-12-23] MEDS: ENOXAPARIN ** NOTE DOSE ** SYRINGE SQ SCH (08:09)
[2020-12-23] MEDS: VANCOMYCIN 2 GM in IV NORMAL SALINE 500ML 500 ML IV SCH (08:10)
--- NOTE | 2020-12-23 10:22 | DS ---
DATE OF DISCHARGE: 12/23/2020 ATTENDING PHYSICIAN: Dr. Vogel. FINAL DISCHARGE DIAGNOSES: 1. Chest pain, myocardial infarction ruled out. 2. Questionable infiltrate right lower lobe consistent with pulmonary edema. 3. Chronic diastolic congestive heart failure. 4. Chronic obstructive pulmonary disease. 5. Hypertension. 6. Morbid obesity. 7. Bacteremia due to contaminant or simple bacteremia without sepsis syndrome. HISTORY AND PHYSICAL: The patient is a 45-year-old gentleman who weighs close to 500 pounds. He presented with chest pain, multiple other issues for further treatment and evaluation. PHYSICAL EXAMINATION: Please see the dictated note. PERTINENT LABORATORY AND X-RAY STUDIES: Admission hemoglobin was 14.0 g/dL with a white count 7300. The chemistry panel showed stable creatinine 0.9 mg percent. Potassium is 4.4 mEq, sodium 142, BUN is normal. Nonfasting blood sugar 144. Microbiology: Had blood cultures came back positive, but the identification was Staphylococcus epidermidis as well as Staphylococcus haemolyticus. These most likely are contaminant and not clinically relevant. He was not septic. COURSE IN THE HOSPITAL: The patient was treated with empiric antibiotics for 4 days. He was given Lasix. Cardiology consultation ordered an echocardiogram. This was completed while in the hospital. The ejection fraction estimated at 55%. He has some diastolic dysfunction, but no valvular abnormalities. He responded well to Lasix, antibiotics. He probably in most likelihood have sleep apnea, but he needs to set up a sleep study and also a stress test. This can be done as an outpatient, it was recommended to him from Cardiology services. On the fifth hospital day, the patient was discharged home with increased Lasix 80 mg p.o. b.i.d., K-Dur 20 mEq b.i.d., cephalexin 500 mg p.o. t.i.d. for 7 more days and continuation of his metoprolol and metformin, dose is unchanged. He is in the process of finding a primary care physician. He was discharged then from our hospital in stable condition with explicit drug and followup care. Total discharge time is [address]: Jorge TID: [id number]
== END 2020-12-23 10:49 | disposition home or self-care (01) | DRG 190 ==
LOC: ER 21:09 → OBSVTOIN 12-20 07:21 → 1 SOUTH 12-20 07:21
PROVIDERS: ADMIT Internal Medicine; ATTEND Internal Medicine
DX: J44.1 Chronic obstructive pulmonary disease with (acute) exacerbation (principal); I50.33 Acute on chronic diastolic (congestive) heart failure; E66.2 Morbid (severe) obesity with alveolar hypoventilation; Z68.43 Body mass index [BMI] 50.0-59.9, adult; I11.0 Hypertensive heart disease with heart failure; J44.9 Chronic obstructive pulmonary disease, unspecified; K59.09 Other constipation; Z90.49 Acquired absence of other specified parts of digestive tract; Z80.7 Family history of other malignant neoplasms of lymphoid, hematopoietic and related tissues; F17.210 Nicotine dependence, cigarettes, uncomplicated; Z88.0 Allergy status to penicillin; E11.9 Type 2 diabetes mellitus without complications; E78.5 Hyperlipidemia, unspecified; F32.9 Major depressive disorder, single episode, unspecified; F41.9 Anxiety disorder, unspecified; I25.10 Atherosclerotic heart disease of native coronary artery without angina pectoris; I87.2 Venous insufficiency (chronic) (peripheral); Z79.899 Other long term (current) drug therapy; Z91.14 Patient's other noncompliance with medication regimen; M15.9 Polyosteoarthritis, unspecified; Z20.822 Contact with and (suspected) exposure to COVID-19; R07.89 Other chest pain
CPT/HCPCS: 36415; 71045; 80048; 80053; 80061; 80202; 83605; 83690; 83880; 84484; 85025; 85027; 87040; 87077; 87186; 87205; 93005; 93306; 94640; 96365; 96367; 96375; 96376; J0456; J0696; J1650; J1940; J2270; J2405; J3370; J7040; J7050; U0003; 99285-25

== ENCOUNTER 2021-02-12 07:21 | Emergency (ER) | payer SELFPAY ==
[~2021-02-12] VITALS: Ht 200.7 cm; Wt 262.0 kg
[~2021-02-12 07:21] MED LIST changes: +FURO40TA4 PO; +METF500T16 PO; +METO50TA29 PO; +POTA-121 PO
[2021-02-12] MEDS ORDERED: EPINEPHrine SYRINGE 1 MG/10 ML SYRINGE ONE ×2 (07:48→08:00)
[2021-02-12] MEDS ORDERED: ROCURONIUM 50 MG/5 ML VIAL. ONE (08:00)
[2021-02-12] MEDS ORDERED: ETOMIDATE 40 MG/20 ML VIAL. ONE (08:00)
[2021-02-12] MEDS ORDERED: NALOXONE 2 MG/2 ML DISP.SYRIN. ONE (08:00)
[2021-02-12] MEDS ORDERED: SODIUM BICARBONATE 50 MEQ/50 ML VIAL. ONE (08:00)
[2021-02-12 08:21] LABS: CALCIUM 9.3 mg/dL (8.5-10.1); CREATININE 1.1 mg/dL (0.7-1.3); GFR 72.1; POTASSIUM 4.2 mmol/L (3.5-5.1)
[2021-02-12 08:27] LABS: ALBUMIN 3.5 g/dL (3.4-5.0); ALBUMIN/GLOBULIN RATIO 0.9 (1.0-1.7); TOTAL BILIRUBIN 0.3 mg/dL (0.2-1.0); TOTAL PROTEIN 7.3 g/dL (6.4-8.2)
--- NOTE | 2021-02-12 08:41 | PHYS DOC ---
Past History Past Medical History: Angina, Anxiety, CAD, CHF, Diabetes, Hypertension, Other Additional Past Medical Histor: PERIPHERAL EDEMA, MORBID OBESITY, GLENN, EDEMA Past Surgical History: No Surgical History Smoking: Greater than 1 pack/day Alcohol Use: Occasionally Drug Use: None General Adult EDM: Chief Complaint: CODE BLUE HPI: HPI: 45-year-old male presents via EMS as a CODE BLUE. The entire report comes from EMS history as the patient is unresponsive. Patient had family called EMS because he had a massive and severe headache. This appears to started suddenly. When EMS arrived the patient was alert and awake. He complained of a severe headache. As they were preparing the patient for transport he began to have respiratory distress and stopped breathing. They began with a nonrebreather and then manual respirations with a BVM. In route to the emergency room they established IO access and the patient declined further. He went into cardiac arrest just prior to arrival. 1 round of epinephrine was given prior to arrival. The patient arrived in the emergency room the with compressions and manual respirations ongoing. Review of Systems: Review of Systems: Unable to perform due to unresponsive state Current Medications: Current Meds: Current Medications Medications (Trade) Dose Ordered Sig/Calixto Start Time Stop Time Status Last Admin Dose Admin Epinephrine HCl (EPINEPHrine SYRINGE) 1 mg STK-MED ONCE 02/12/21 07:48 02/12/21 07:48 DC Allergies: Allergies: Allergies Coded Allergies Type Severity Reaction Last Updated Verified Penicillins Allergy Intermediate 03/09/18 Yes Physical Exam: PE: Constitutional: Well developed, well nourished, severely morbidly obese, severe distress. [] HENT: Normocephalic, atraumatic, bilateral external ears normal, oropharynx moist, no oral exudates, nose normal. Extremely large tongue. [] Eyes: 2 mm pupils, nonreactive, conjunctiva normal, no discharge. [] Neck: Large neck with limited mobility due to size [] Cardiovascular: Asystole and PEA [] Lungs & Thorax: Manually ventilated [] Abdomen: Enlarged abdomen, soft, no masses, no pulsatile masses. [] Skin: Warm, dry, no erythema, no rash. [] Back: No obvious signs of trauma [] Extremities: Generalized peripheral edema. [] Neurologic: Pupils fixed, no corneal reflex [] Psychologic: Unable to evaluate. [] Current Patient Data: Labs: Laboratory Tests Test 02/12/21 07:20 White Blood Count 12.0 x10^3/uL (4.0-11.0) H Red Blood Count 4.60 x10^6/uL (4.30-5.70) Hemoglobin 13.3 g/dL (13.0-17.5) Hematocrit 42.0 % (39.0-53.0) Mean Corpuscular Volume 91 fL (79-100) Mean Corpuscular Hemoglobin 29 pg (25-35) Mean Corpuscular Hemoglobin Concent 32 g/dL (31-37) Red Cell Distribution Width 15.5 % (11.5-14.5) H Platelet Count 338 x10^3/uL (140-400) Neutrophils (%) (Auto) 56 % (31-73) Lymphocytes (%) (Auto) 30 % (24-48) Monocytes (%) (Auto) 10 % (0-9) H Eosinophils (%) (Auto) 4 % (0-3) H Basophils (%) (Auto) 1 % (0-3) Neutrophils # (Auto) 6.7 x10^3uL (1.8-7.7) Lymphocytes # (Auto) 3.6 x10^3/uL (1.0-4.8) Monocytes # (Auto) 1.2 x10^3/uL (0.0-1.1) H Eosinophils # (Auto) 0.4 x10^3/uL (0.0-0.7) Basophils # (Auto) 0.1 x10^3/uL (0.0-0.2) Platelet Estimate Pending EKG: EKG: [] Radiology/Procedures: Radiology/Procedures: [] Heart Score: C/O Chest Pain: N/A Risk Factors: Risk Factors: DM, Current or recent (<one month) smoker, HTN, HLP, family history of CAD, obesity. Risk Scores: Score 0 - 3: 2.5% MACE over next 6 weeks - Discharge Home Score 4 - 6: 20.3% MACE over next 6 weeks - Admit for Clinical Observation Score 7 - 10: 72.7% MACE over next 6 weeks - Early Invasive Strategies Course & Med Decision Making: Course & Med Decision Making Pertinent Labs and Imaging studies reviewed. (See chart for details) The patient arrived and he was being ventilated with BVM and compressions were being performed. He was transferred over to the [facility] with significant effort as the patient is 260 kg. We continued manual compressions and BVM. There was a nasopharyngeal airway in place. There was some resistance to respirations so we proceeded to intubate the patient. On the first attempt the patient had an extremely enlarged tongue and it was difficult getting the glide scope blade in place. It seems like the patient might be biting down so we went back to manual BVM. We decided to RSI the patient with etomidate and rocuronium. After these medications were given, there were more attempts at intubation. I attempted with a glide scope, manual blade, assistance of a bougie. We continued the ventilator with BVM between attempts. On the fourth attempt, I was finally able to get visualization with a #4 glide scope blade and manual retraction of the tongue by the nurse. I was able to pass a 7.5 tube through the vocal cords. There was good color change. Bilateral breath sounds. The patient's oxygenation level did not improve. At no time did we have a pulse. He had periods of PEA and asystole. At no time did he have a shockable rhythm. The patient was given a second dose of rocuronium prior to the fourth intubation attempt. 2 amp of bicarb were given. Despite all of our efforts, the patient did not improve and he did . Time of 8:08 AM. [] Dragon Disclaimer: Dragon Disclaimer: This electronic medical record was generated, in whole or in part, using a voice recognition dictation system. Departure Departure: Impression: Primary Impression: Cardiopulmonary arrest Disposition: 20 Condition: Referrals: PCP,[facility]NA (PCP) PITA SARAH DO Feb 12, 2021 08:41
== END 2021-02-12 12:12 ==
LOC: ER 07:37
DX: I46.9 Cardiac arrest, cause unspecified (principal); F41.9 Anxiety disorder, unspecified; I25.10 Atherosclerotic heart disease of native coronary artery without angina pectoris; E11.9 Type 2 diabetes mellitus without complications; I11.0 Hypertensive heart disease with heart failure; I50.9 Heart failure, unspecified; E66.01 Morbid (severe) obesity due to excess calories; Z87.891 Personal history of nicotine dependence; Z68.44 Body mass index [BMI] 60.0-69.9, adult; Z88.0 Allergy status to penicillin
CPT/HCPCS: 31500; 36415; 80053; 84484; 99285; J0171; J2310